=== PATIENT | male | born 1950 | race Caucasian/White ===

== ENCOUNTER 2023-08-16 23:52 | Inpatient (IN) | payer MEDICARE, OTHER, SELFPAY ==
[2023-08-16 20:23] VITALS: BP 127/82
[2023-08-16 20:27] VITALS: BP 127/82
[2023-08-16 20:41] LABS: % Basophils 0.2 % (0-2); % Immature Granulocytes 0.7 % (0-0.5); % Lymphocytes 8.2 % (20.5-51.1); % Monocytes 8.4 % (1.7-9.3); % Neutrophils 82.5 % (42.2-75.2); Absolute Immature Granulocytes 0.1 10^3/uL (0-0.05); Absolute Lymphocytes 0.7 10^3/uL (1.2-3.4); Absolute Monocytes 0.7 10^3/uL (0.1-0.6); Absolute Neutrophils 7.3 10^3/uL (1.4-6.5); Hematocrit 38.4 % (39.0-52.0); Hemoglobin 12.8 g/dL (13.0-18.0); Mean Corp Hgb Conc. 33.3 g/dL (33.0-37.0); Mean Corpuscular Hgb 31.2 pg (27.0-31.0); Mean Corpuscular Volume 93.7 fL (80.0-94.0); Nucleated Red Blood Cells % 0 % (-); Red Cell Dist. Width 14.4 % (11.5-14.5); White Blood Cell Count 8.9 10^3/uL (4.8-10.8)
[2023-08-16 20:54] LABS: ALT (SGPT) 83 U/L (0-50); AST (SGOT) 156 U/L (17-59); Albumin 4.1 g/dl (3.5-5.0); Alkaline Phosphatase 174 U/L (38-126); Blood Urea Nitrogen 15 mg/dl (9-20); Calcium 9.3 mg/dl (8.4-10.2); Carbon Dioxide 31 mmol/L (22-30); Chloride 91 mmol/L (98-107); Estimated Creatinine Clearance 74 ml/min; Glucose 142 mg/dl (70-99); Potassium 3.4 mmol/L (3.5-5.1); Sodium 137 mmol/L (135-145); Total Protein 8.4 g/dl (6.3-8.2); eGFR > 60.00
[2023-08-16 20:56] LABS: COVID-19 Antigen Negative (Negative)
[2023-08-16 21:00] VITALS: BP 123/87
[2023-08-16 21:06] LABS: Mean Platelet Volume 10.5 fL (7.4-10.4); Platelet Count 94 10^3/uL (130-400)
[2023-08-16] MEDS: NSS 1000 IV (21:26)
[2023-08-16] MEDS: MOTRIN 400 MG PO (21:26)
[2023-08-16 21:33] LABS: Venous Blood Gas B.E. 11.6 mmol/L (-4 to +4); Venous Blood Gas O2 Sat % 89.5 %; Venous Blood Gas pCO2 40 mmHg (35-48); Venous Blood Gas pH 7.55 (7.32-7.43); Venous Blood Gas pO2 54 mmHg (30-50)
--- NOTE | 2023-08-16 21:49 | ED.GENMED ---
History of Present Illness
General
Chief Complaint: Weakness
Source: patient
Exam Limitations: none
Time Seen by Provider: 08/16/23 21:03
Travel History
Have you had any contact with someone who has COVID-19?: No
Do you have any symptoms of coronavirus? Fever > 100 degrees, chills, cough, shortness of breath, sore throat, loss of taste or smell, muscle aches, or headache?: No
History of Present Illness
History of Present Illness:
Patient with history of chronic alcoholism, presents to ED secondary to generalized weakness which has caused him to fall multiple times recently. Last alcohol intake this afternoon. Upon arrival, patient found to be febrile, which she was not
aware of. Denies coughing. Denies diarrhea. Denies abdominal pain. Denies seeing blood with urination or with bowel movements, as he has had history of GI bleed. Denies dizziness. Patient does admit to decreased appetite, and poor oral intake.
Past History
Past History
ED Past Medical History: GERD, HTN, Hypercholesterolemia, Psychiatric (Depression) and Other (GI bleed, alcoholism)
Social History
Tobacco: Former smoker
Alcohol: Chronic alcoholic (12pk)
Drug: None
Living: with family
Review of Systems
Review of Systems
Allergies reviewed?: Yes
All Other Systems: ROS reviewed and negative except as documented in HPI and ROS
Constitutional: Reports no symptoms
EENT: Reports no symptoms
Respiratory: Reports no symptoms
Cardiac: Reports no symptoms
ABD/GI: Reports no symptoms
: Reports no symptoms
Musculoskeletal: Reports other (falls)
Skin: Reports no symptoms
Neurological: Reports weakness
Phy Exam
Physical Exam
Physical Exam:
Physical Exam
General: mild distress, not acutely ill. afebrile. weak appearing
Head: nc/at. eomi
Neck: supple. no meningeal signs.
Heart: s1/s2 regular rate and rhythm, no murmur. equal radial pulses.
Lungs: no acute respiratory distress. clear bilaterally
Abdomen: normal bowel sounds. not tender.
Neuro: alert and oriented. no focal neurological deficits
Skin: no rash
Psychiatric: well kept. interactive and cooperative
Extremities: no edema. no calf tenderness.
Course
Orders/Labs/Results
Orders:
Orders
08/16/23 20:27
Electrocardiogram (*1) Urgent
Reason for Study: Fatigue / Weakness
08/16/23 20:28
EKG- Treatment ONCE
08/16/23 20:30
Alcohol Urgent
COVID-19 Antigen Urgent
Source: Nasal Swab
Complete Blood Count/With Diff Urgent
Comprehensive Metabolic Panel Urgent
Lactic Acid Urgent
Magnesium Urgent
Comment: ADD ON
Blood Culture Urgent
KELLEY Source: Blood/Venous
Specimen Description:
Influenza A+B Rapid Molecular Urgent
KELLEY Source: Nasal Swab
Specimen Description:
08/16/23 21:12
Add On- LAB Urgent
Tests Added?: alcohol, magnesium
08/16/23 21:13
0.9% Sodium Chloride 1000 ml [Nss] 1,000 ml IV BOLUS
Ibuprofen [Motrin] 400 mg PO NOW STA
08/16/23 21:26
Venous Blood Gas Urgent
%Oxygen/Room Air: 95
08/16/23 21:50
CR Chest - 2 Views Urgent
Comment:
Reason For Exam: fever/cough
08/16/23 23:26
Lorazepam [Ativan] 1 mg IV NOW STA
Abnormal Lab Results
08/16/23 08/16/23
20:30 21:26
RBC 4.10 L 10^6/uL
(4.70-6.10)
Hgb 12.8 L g/dL
(13.0-18.0)
Hct 38.4 L %
(39.0-52.0)
MCH 31.2 H pg
(27.0-31.0)
Plt Count 94 L 10^3/uL
(130-400)
MPV 10.5 H fL
(7.4-10.4)
Abs Immat Gran (auto) 0.1 H 10^3/uL
(0-0.05)
Absolute Neuts (auto) 7.3 H 10^3/uL
(1.4-6.5)
Absolute Lymphs (auto) 0.7 L 10^3/uL
(1.2-3.4)
Absolute Monos (auto) 0.7 H 10^3/uL
(0.1-0.6)
Immature Gran % 0.7 H %
(0-0.5)
Neutrophils % 82.5 H %
(42.2-75.2)
Lymphocytes % 8.2 L %
(20.5-51.1)
VBG pH 7.55 H
(7.32-7.43)
VBG pO2 54 H mmHg
(30-50)
VBG HCO3 35.0 H mmol/L
(22-27)
Potassium 3.4 L mmol/L
(3.5-5.1)
Chloride 91 L mmol/L
(98-107)
Carbon Dioxide 31 H mmol/L
(22-30)
Glucose 142 H mg/dl
(70-99)
Lactic Acid 7.0 H* mmol/L
(0.7-2.0)
Total Bilirubin 2.0 H mg/dl
(0.2-1.3)
AST 156 H U/L
(17-59)
ALT 83 H U/L
(0-50)
Alkaline Phosphatase 174 H U/L
(38-126)
Total Protein 8.4 H g/dl
(6.3-8.2)
08/16/23 20:30
08/16/23 20:30
Vital Signs
Initial and Last Documented VS:
Initial Vital Signs
Temp Pulse Resp BP Pulse Ox
100.2 F 111 18 127/82 94
08/16/23 20:23 08/16/23 20:23 08/16/23 20:23 08/16/23 20:23 08/16/23 20:23
Last Documented Vital Signs
Temp Pulse Resp BP Pulse Ox
98.3 F 84 17 121/84 96
08/16/23 22:02 08/16/23 22:15 08/16/23 22:00 08/16/23 22:00 08/16/23 22:15
MDM/Problems Addressed
MDM/Problems Addressed:
History and exam concerning for febrile illness, unknown etiology at this time. COVID and influenza negative. Unfortunately, patient is alcohol dependent, including alcohol intake this afternoon, and consequently high risk for developing DTs,
which he has had previously. Increased lactate level, likely prerenal. As such, patient will be admitted for further evaluation and treatment, including continue IV hydration, as well as DT precautions..
Blood culture pending.
*Critical Care Note
Total Time (30-74mins, 75-104mins- exclusive of procedures): Not Applicable
ED Attending Note
-
Portions of this chart may have been created with voice recognition software.� Occasional wrong word or��sound alike� substitutions may have occurred due to the inherent limitations of voice recognition software.
Discharge Plan
Departure
Patient Disposition: Admit
Date of Disposition: 08/16/23
Time of Disposition: 23:29
Admit to: Telemetry
Presentation/result/management discussed w/ accepting MD/DO: Hospitalist
Discharge Problem:
Dehydration, Alcohol withdrawal
Interventions
Interventions:
*Risk Screen - Suicide Last Done: 08/16/23 20:23
*General Assessment Last Done: 08/16/23 20:23
*Neglect/Abuse Screening Last Done: 08/16/23 20:23
*ED COVID-19 Vaccine History Last Done: 08/16/23 20:23
ED- Cardiac Assessment Last Done: 08/16/23 20:25
ED- Neurological Assessment Last Done: 08/16/23 20:25
ED- Pulmonary Assessment Last Done: 08/16/23 20:25
[2023-08-16 21:57] LABS: Alcohol None Detected; Magnesium 1.9 mg/dl (1.6-2.3)
[2023-08-16 22:00] VITALS: BP 121/84
[2023-08-16] MEDS: ATIVAN 1 MG IV (23:56)
[2023-08-17] VITALS (33 sets, daily range): BP systolic 103–149; BP diastolic 55–122; BMI 19.4
--- NOTE | 2023-08-17 00:18 | HPS.HSE ---
Addendum entered and electronically signed by Carlos Jon DO 08/17/23 01:09:
Addendum:
CT Head added on given patient admitted history of frequent falls / head trauma.
CT shows bilateral subdural collections - approx 5mm in size - which appear to be most consistent with old hematomas.
Repeat CT in AM to assess for stability.
Follow neurologic exam for any changes.
Original Note:
Family Physician
-
Family Physician: Val Rosas
Chief Complaint
-
Weakness, Ambulatory Dysfunction
History of Present Illness
Patient is a 73y M with PMH significant for chronic alcohol use disorder and hypertension who presents to ED complaining of generalize weakness, tremulousness, gait dysfunction and falls. History obtained from patient and question accuracy of
details / timing due to chronic alcohol use / confabulations / etc. Patient reports feeling weak and wobbly for the past week or so. Then states that he last fell about 2 weeks ago. States that he does think he hit his head, but denies any LOC.
Has no pain at present, no headache.
Patient notes that he drinks 6-12 beers daily. He had 3 beers this afternoon.
Medical History
Past Medical History
Past Medical History: Reports Other
Additional Past Medical History:
Hypertension
Chronic Alcoholic
GERD
Iron Deficiency Anemia
Past Surgical History: Reports Other
Additional Past Surgical History:
Rotator Cuff Repair
Social History
Tobacco: Former Smoker (20 years 1 pack/day quit age 42)
Alcohol: Daily (10 beers )
Drug: None
Personal: Single
Living: Alone
Employment: Retired
Family History
Family History: Not pertinent
Allergies / Home Medications
Allergies reflects when Allergies were last updated in [facility].
Home Medications with original date entered in [facility] [employer] [facility]
Allergy/Medication List:
Allergies
Allergy/AdvReac Type Severity Reaction Status Date / Time
lisinopril Allergy Intermediate Tongue Verified 08/16/23 21:42
Swelling
Home Medications
simvastatin 20 mg tablet 20 mg PO QPM High cholesterol 02/08/21
ferrous sulfate 325 mg (65 mg iron) tablet (FeroSul) 325 mg PO DAILY 06/03/22
folic acid 400 mcg tablet 0.4 mg PO DAILY #30 tabs 12/01/22
metoprolol succinate 25 mg tablet,extended release 24 hr 12.5 mg PO DAILY #30 tabs 12/01/22
olanzapine 2.5 mg tablet 2.5 mg PO HS #30 tabs 12/01/22
thiamine HCl (vitamin B1) 100 mg tablet 100 mg PO DAILY #30 tabs 12/01/22
docusate sodium 100 mg capsule (Colace) 200 mg PO QPM 08/16/23
famotidine 40 mg tablet (Pepcid) 40 mg PO HS 08/16/23
hydrochlorothiazide 12.5 mg tablet 12.5 mg PO QPM 08/16/23
pantoprazole 40 mg tablet,delayed release (Protonix) 40 mg PO DAILY 08/16/23
sertraline 100 mg tablet 100 mg PO DAILY 08/16/23
Review of Systems
-
History Source: Patient
Constitutional: Reports Fatigue; Denies Fever or Chills
EENT: Denies Sore Throat
Respiratory: Denies Cough or Trouble Breathing
Cardiac: Denies Chest Pain or Palpitations
Abdomen/GI: Denies Abdominal Pain, Nausea, Vomiting or Diarrhea
: Denies Dysuria, Frequency or Flank Pain
Musculoskeletal: Denies Joint Pain or Edema
Neurological: Reports Dizzy, Weakness and Other (Tremulous); Denies Headache
Physical Exam
Vital Signs
Vital Signs
Temp Pulse Resp BP Pulse Ox
98.3 F 84 17 121/84 96
08/16/23 22:02 08/16/23 22:15 08/16/23 22:00 08/16/23 22:00 08/16/23 22:15
Physical Exam
General: Other (73y M mildly tremulous and restless. Awake and alert and conversant.)
HEENT: Moist mucous membranes and PERRLA
Respiratory: Clear; No Wheezes, Rales or Rhonchi
Cardiac: S1/S2 and Regular Rhythm; No Murmur
GI: Soft, Non Tender, Non Distended and Normal Bowel Sounds
Musculoskeletal: No Clubbing, No Cyanosis and No Edema
Neuro: Awake, Alert and Nonfocal/grossly intact
Laboratory Results
-
08/16/23 20:30
08/16/23 20:30
Laboratory Results
Lactic Acid 7.0 mmol/L (0.7-2.0) H* 08/16/23 20:30
Total Bilirubin 2.0 mg/dl (0.2-1.3) H 08/16/23 20:30
AST 156 U/L (17-59) H 08/16/23 20:30
ALT 83 U/L (0-50) H 08/16/23 20:30
Alkaline Phosphatase 174 U/L (38-126) H 08/16/23 20:30
Impression/Plan
-
A/P: Patient is a 73y M with PMH significant for HTN and alcohol use disorder who presents to ED for evaluation of weakness / gait dysfunction / falls at home.
Ambulatory Dysfunction
Fall(s) at Home
- Admit for further evaluation and treatment.
- Suspect that symptoms are due to chronic alcohol use disorder +/- acute withdrawal.
- Check CT head given multiple reported falls and stated head injury.
- Treat alcohol withdrawal symptoms as noted below.
- PT / OT evaluations.
- Suspect a degree of chronic gait dysfunction that may be irreversible due to longstanding alcohol abuse.
Alcohol Use Disorder
Alcohol Withdrawal
Alcoholic Hepatitis
Lactic Acidosis
- Patient is tremulous in the ED and describes episodes of 'shaking all over' with gait disturbance and falls at home.
- Question whether or not patient had a recent seizure - if only based on his history and significant lactate elevation that is otherwise unexplained?
- Monitor for symptoms of withdrawal and treat with BZDs as needed.
- Patient developed hypercapnia / somnolence with previous phenobarbital.
- Consider Precedex if symptoms are uncontrolled.
- Thiamine / folate / etc.
- Follow LFTs for improvement off of EtOH.
- Patient previously declined formal rehabilitation. Sobriety / recovery is unlikely without this.
Benign Hypertension
- Continue metoprolol with holding parameters.
- Would discontinue HCTZ in this chronic alcoholic / beer drinker with high risk for hyponatremia.
- Adjust regimen as needed for adequate control.
Iron Deficiency Anemia
- Stable. Hgb is improved from prior.
- Continue iron supplementation.
- Follow for any changes.
- GI evaluations done 04/2023 were unremarkable.
Anxiety / Depression
- Continue sertraline.
DVT Prophylaxis: SCDs
Code Status: Full
[2023-08-17] MEDS: LR 1000 IV ×3 (01:23→20:15)
[2023-08-17] MEDS: THIAMINE INJECTION 200 MG IV ×4 (01:24→23:45)
[2023-08-17 03:12] LABS: INR 1.19; PT 14.9 Sec (11.4-14.6)
[2023-08-17 03:13] LABS: APTT 27.5 Sec (23.4-35.0)
[2023-08-17] MEDS: ATIVAN 2 MG IV (03:23)
[2023-08-17 04:39] LABS: Hematocrit 31.5 % (39.0-52.0); Hemoglobin 10.6 g/dL (13.0-18.0); Mean Corp Hgb Conc. 33.7 g/dL (33.0-37.0); Mean Corpuscular Hgb 31.5 pg (27.0-31.0); Mean Corpuscular Volume 93.5 fL (80.0-94.0); Mean Platelet Volume 10.1 fL (7.4-10.4); Platelet Count 50 10^3/uL (130-400); Red Blood Cell Count 3.37 10^6/uL (4.70-6.10); Red Cell Dist. Width 14.4 % (11.5-14.5); White Blood Cell Count 4.2 10^3/uL (4.8-10.8)
[2023-08-17 05:00] LABS: ALT (SGPT) 33 U/L (0-50); AST (SGOT) 112 U/L (17-59); Albumin 3.2 g/dl (3.5-5.0); Alkaline Phosphatase 141 U/L (38-126); Blood Urea Nitrogen 12 mg/dl (9-20); Calcium 7.8 mg/dl (8.4-10.2); Carbon Dioxide 32 mmol/L (22-30); Chloride 98 mmol/L (98-107); Direct Bilirubin 0.8 mg/dl (0.0-0.4); Estimated Creatinine Clearance 98 ml/min; Glucose 76 mg/dl (70-99); Magnesium 1.7 mg/dl (1.6-2.3); Potassium 2.9 mmol/L (3.5-5.1); Sodium 133 mmol/L (135-145); Total Bilirubin 1.4 mg/dl (0.2-1.3); Total Protein 6.4 g/dl (6.3-8.2); eGFR > 60.00
[2023-08-17] MEDS: ATIVAN 1 MG IV ×2 (05:21→10:52)
--- NOTE | 2023-08-17 06:12 | PTCARENOTE ---
0545 - received pt from [facility], all assesments/admission completed during ED hold by previous RN, patient lethargic but able to tell me name//and where he was currently. no pain/discomfort, no nausea, only complaint is feeling weak. patient
states he has only had 3 beers on wednesday afternoon before he came to ER.
patient bathed and hooked up to monitors, was given ativan in ER prior to arrival. patient is in bed sleeping with bed alarm on.
[2023-08-17] MEDS: PROTONIX 40 MG PO (07:31)
[2023-08-17] MEDS: FOLVITE 1 MG PO (07:34)
[2023-08-17] MEDS: TOPROL XL 12.5 MG PO (07:34)
[2023-08-17] MEDS: ATIVAN 1 MG PO (07:34)
[2023-08-17] MEDS: KCL 40 MEQ PO (08:50)
[2023-08-17] MEDS: NSS (PRESERVATIVE FREE) 0.5 ML IV (10:52)
[2023-08-17] MEDS: PHENOBARBITAL 97.5 MG IV ×3 (12:33→21:26)
--- NOTE | 2023-08-17 12:34 | W.PN.HOSP.TC ---
Addendum entered and electronically signed by Alfred Gross MD 08/17/23 15:20:
Patient seen and examined
Discussed with resident
Discussed with RN
Discussed with patient's daughter over the phone
Falls at home.
Altered mental status secondary to severe alcohol use disorder with alcohol withdrawal and delirium tremens.
I related to name only.
No focal findings on exam other than tremor.
CT scan of the head with bilateral subdural collections 5 mm in size new.
Will ask neurosurgery to evaluate
Patient is not on antiplatelet or anticoagulation treatment prior to presentation.
Delirium tremens
Toxic metabolic encephalopathy secondary to above.
Continue close monitoring
MSAS assessment with lorazepam.
Add phenobarbital taper monitor for oversedation.
Continue thiamine
Alcoholic hepatitis.
Monitor LFTs.
Lactic acidosis.
Improved with volume expansion
Hold HCTZ
Follow BMP.
Hypokalemia
Replete
Follow BMP, magnesium level.
CODE STATUS DNR
Original Note:
Today's Communication/Plan
-
Continue Thiamine/Folate
Phenobarbital
PT/OT when stable for therapy.
Assessment / Plan
Assessment / Plan
A/P:� Patient is a 73y M with PMH significant for HTN and alcohol use disorder who presents to ED for evaluation of weakness / gait dysfunction / falls at home.
Ambulatory Dysfunction
Fall(s) at Home
�- Admit for further evaluation and treatment.
�- Suspect that symptoms are due to chronic alcohol use disorder +/- acute withdrawal.
�- Check CT head given multiple reported falls and stated head injury. CT shows bilateral subdural collections - approx 5mm in size - which appear to be most consistent with old hematomas.
�- Treat alcohol withdrawal symptoms as noted below.
�- PT / OT evaluations.
�- Suspect a degree of chronic gait dysfunction that may be irreversible due to longstanding alcohol abuse.
Alcohol Use Disorder
Alcohol Withdrawal
Alcoholic Hepatitis
Lactic Acidosis
�- Patient is tremulous in the ED and describes episodes of 'shaking all over' with gait disturbance and falls at home.
�- Question whether or not patient had a recent seizure - if only based on his history and significant lactate elevation that is otherwise unexplained?
�- Monitor for symptoms of withdrawal and treat with BZDs as needed.
�- Patient developed hypercapnia / somnolence with previous phenobarbital.
�- Consider Precedex if symptoms are uncontrolled.
�- Thiamine / folate / etc.
�- Follow LFTs for improvement off of EtOH.
�- Patient previously declined formal rehabilitation.� Sobriety / recovery is unlikely without this.
Benign Hypertension
�- Continue metoprolol with holding parameters.
�- Would discontinue HCTZ in this chronic alcoholic / beer drinker with high risk for hyponatremia.
�- Adjust regimen as needed for adequate control.
Iron Deficiency Anemia
�- Stable.� Hgb is improved from prior.
�- Continue iron supplementation.
�- Follow for any changes.
�- GI evaluations done 04/2023 were unremarkable.
Anxiety / Depression
�- Continue sertraline.
DVT Prophylaxis:� SCDs
Code Status:� DNR
Anticipated Discharge: > 48 hours
Subjective/Interval History
-
Date of Service: August 17, 2023
Objective Data
-
Labs:
Laboratory Results
08/17/23 08/17/23
02:44 04:32
WBC 4.2 L
Hgb 10.6 L
Hct 31.5 L
Plt Count 50 L D
PT 14.9 H
INR 1.19
APTT 27.5
Sodium 133 L
Potassium 2.9 L
Chloride 98
Carbon Dioxide 32 H
BUN 12
Creatinine 0.6 L
Glucose 76
Calcium 7.8 L D
Total Bilirubin 1.4 H
AST 112 H
ALT 33
Alkaline Phosphatase 141 H
Vital Signs:
Vital Signs
Temp Pulse Resp BP Pulse Ox
97.5 F 68 11 125/77 98
08/17/23 12:02 08/17/23 12:00 08/17/23 12:00 08/17/23 12:00 08/17/23 12:00
I&O
08/16/23 08/17/23 08/18/23
06:59 06:59 06:59
Intake Total 480 / 580 600 / 600
Output Total 200 / 200
Balance 280 / 380 600 / 600
Review of Systems
-
Unable to obtain full review of systems at this time due to: Other (tremulous )
Physical Exam
-
General: Other (Awake, tremulous, restless, )
HEENT: Moist Mucous Membranes
Respiratory: Clear to Auscultation; Negative Wheezes
Cardiac: Regular Rhythm and S1/S2; Negative Murmur or Rub
GI: Soft, Nontender, Nondistended and Normal Bowel Sounds
Musculoskeletal: No Clubbing, No Cyanosis and No Edema
Neuro: Awake and Tremors
--- NOTE | 2023-08-17 13:17 | CM ---
CM following re: discharge planning.
Discussed in Rounds, reviewed pt's chart, met with pt and daughter Poly at bedside.
Pt is a 73 year old male, admitted with primary dx of Ambulatory Dysfunction. Fall(s) at Home. PMH significant for alcohol use disorder. Per daughter last year in November pt had similar admissions to and went to [facility] for a short term
rehab. Per daughter, pt lives alone in a 2SH, 2 steps to enter, has 3 children, one daughter is not involved in pt's live.
Pt's [facility] stated [facility] admission to and it did not work out. Per daughter, pt continues drinking, his house in deplorable condition, feces everywhere. Pt's daughter stated she understands pt's addiction
to alcohol especially 'being alcoholic myself'.
Pt's daughter stated that pt will not be able to return back home and she is working with [facility] to admit the pt for a short term and a moth exterminator care.
PCP: Val Rosas
Pharmacy: [facility] [place].
[facility] a transition to a moth exterminator care.
CM will follow with discharge plan updates as hospitalization progresses
[2023-08-17] MEDS: LIPITOR 10 MG PO (17:05)
--- NOTE | 2023-08-17 17:35 | CON.NS ---
Consultation
-
Date/Time Consultation Performed: 08/17/2023; 17:35
Performing Provider: Norma
Chief Complaint
History of Present Illness
This is a neurosurgical consultation, 73 old gentleman admitted overnight. He has a past medical history significant for chronic alcohol use disorder, hypertension, he presented with generalized weakness with falls, gait dysfunction. Patient
reported overall sense of weakness and gait instability with wobbliness for the last week or so. He also sustained a fall several weeks prior.
Patient had a head CT given his history of frequent falls/remote history of head trauma which demonstrated bilateral subdural collections.
Patient seen and examined. Is been approximately 48 hours since his last drink. He is receiving phenobarbital for alcohol withdrawal. Currently he denies any headaches.
Review of Systems
-
A 10 point review of systems was performed, which included constitutional, ENT, cardiovascular, respiratory, GI, , endocrine, hematologic, neurologic, musculoskeletal, which was negative except for stated in HPI.
Medication and Allergies
Home Medications
Home Medications
Medication Instructions Recorded
simvastatin 20 mg tablet 20 mg PO QPM High cholesterol 02/08/21
ferrous sulfate 325 mg (65 mg 325 mg PO DAILY Supplement 06/03/22
iron) tablet (FeroSul)
folic acid 400 mcg tablet 0.4 mg PO DAILY #30 tabs 12/01/22
metoprolol succinate 25 mg 12.5 mg PO DAILY #30 tabs 12/01/22
tablet,extended release 24 hr
olanzapine 2.5 mg tablet 2.5 mg PO HS #30 tabs 12/01/22
thiamine HCl (vitamin B1) 100 mg 100 mg PO DAILY #30 tabs 12/01/22
tablet
docusate sodium 100 mg capsule 200 mg PO QPM Constipation 08/16/23
(Colace)
famotidine 40 mg tablet (Pepcid) 40 mg PO HS Gastrointestinal Issue 08/16/23
hydrochlorothiazide 12.5 mg tablet 12.5 mg PO QPM Blood Pressure 08/16/23
pantoprazole 40 mg tablet,delayed 40 mg PO DAILY Gastrointestinal 08/16/23
release (Protonix) Issue
sertraline 100 mg tablet 100 mg PO DAILY Mental 08/16/23
Health/Anxiety
Allergies
Allergies
Allergy/AdvReac Type Severity Reaction Status Date / Time
lisinopril Allergy Intermediate Tongue Verified 08/16/23 21:42
Swelling
Physical Exam
-
Exam:
Sleeping but arousable. Mildly tremulous.
Pupils are equal and reactive.
Extraocular movements are full.
Face is symmetric. Tongue is midline.
5/5 strength in upper extremities lower extremities.
Head is normocephalic, atraumatic.
Neck is supple.
Abdomen is soft.
Breathing is nonlabored.
Pulses are palpable.
Normal rate and rhythm.
Exams:� CT Head W/o Iv Contrast
PROCEDURE: CT Head W/o Iv Contrast
CLINICAL INDICATION: Fall. Weakness. EtOH.
TECHNIQUE: A CT examination of the head was performed without intravenous contrast. Coronal reformatted images were obtained. Automatic exposure control radiation dose reduction technology was utilized.
COMPARISON: Most recent examination 11/20/2022. Brain MRI 01/07/2012.
Preliminary report provided by [facility].
FINDINGS: When compared to the previous exam 11/20/2022 there are bifrontal subdural collections measuring 5 mm. These are low to intermediate in density, suggesting chronic subdural hematoma or hygroma. There are a few scattered foci of internal
hyperdensity concerning for superimposed more acute hemorrhage.
The ventricles are mildly enlarged bilaterally. No midline shift.� There is mild deepening of the sulci diffusely. Mild decrease in attenuation in the periventricular and deep white matter.� Calvarium intact.
There is no� definite acute infarct or hemorrhage otherwise.
There is no mass or mass effect.
The visualized portions of the paranasal sinuses and orbits are� clear of an acute process. Minimal mucosal thickening in the right maxillary sinus.
IMPRESSION:
1. � New bilateral subdural collections when compared to 11/20/2022. This is likely due to previous subdural hematoma, now most consistent with a chronic hygroma. Superimposed acute hemorrhage cannot be excluded, short-term interval CT head is
recommended to ensure stability.
2. � No active intraparenchymal hemorrhage. No midline shift.
3. � No significant change in the diffuse volume loss and chronic leukoaraiosis. Likely microangiopathic. No focal area of large vascular territory ischemia.
4. � No calvarial fracture.
5. � These results were discussed with Dr. Jon at 12:54 AM by the on-call radiologist Dr. Mujica.
This report agrees with the report provided by [facility].
Electronically signed by La Callejas MD 08/17/2023 10:46 AM
Exams:� CT Head W/o Iv Contrast
Scanning parameters: CT of the head without intravenous contrast material was obtained. Automated exposure control was used.
INDICATION: Subdural hematoma. Chronic alcohol abuse
Weakness. Gait dysfunction
Comparison examination: 08/17/2023 and 11/20/2022
FINDINGS:
There is mild diffuse cortical and cerebellar atrophy
There are stable 8 mm in diameter bilateral low-density frontotemporal subdural collections which had not been present on the 11/20/2022 examination and which may be hygromas or subdural hematomas/seromas.
There is no acute intracranial hemorrhage
There are no acute intracranial abnormalities.
There is no intracranial hemorrhage.
There is no edema or mass effect to suggest neoplasm.
There are no abnormal extra-axial fluid collections.
There are no focal areas of diminished density to suggest infarct.
IMPRESSION:
There are stable 8 mm in diameter bilateral low-density frontotemporal subdural collections which had not been present on the 11/20/2022 examination and which may be hygromas or subdural hematomas/seromas.
There is no acute intracranial hemorrhage
There is mild diffuse cortical and cerebellar atrophy
Electronically signed by Brandon Alvarado MD 08/17/2023 10:16 AM
I reviewed the initial, and follow-up PET/CT. I agree with the above reports. There is bilateral hypodense subdural/extra-axial collections, most consistent with subdural hygromas. No obvious evidence of brain compression is seen
Problems
-
Problem Status Onset Code
Dehydration E86.0
Alcohol withdrawal F10.939
Assessment / Plan
-
This is a 73-year-old gentleman with a history of chronic alcohol abuse, who presents with generalized weakness, frequent falls. CT of the head demonstrates bilateral subdural hygromas/chronic subdural hematomas without any evidence of brain
compression.
Patient with thrombocytopenia, likely secondary to liver disease from alcohol abuse. Recommend follow-up/trending patient's platelet count. Would recommend maintaining platelet counts greater than 50,000 at all times to prevent spontaneous
intracranial hemorrhage.
Alcohol withdrawal treatment per medicine/ICU. No further follow-up imaging studies needed, unless examination changes.
--- NOTE | 2023-08-17 17:36 | PTCARENOTE ---
Patient received in AM with assessment as noted and IMU hold status.ETOH withdrawal ongoing with MSAS scores between 5-9. Phenobarbital protocol started at 1200 with subsequent MSAS scores of 5-6. Calm but confused affect. Oriented to self and place
(if you accept [facility] as a viable answer to place) only. Compliant with PO meds. Able to swallow meds safely. NSR on monitor. Afebrile. B/P's stable. Lungs CTA. Sao2 97% on room air. Refused meals. No bowel movement today. Incontinent of urine.
Her daughter (POA) into visit and made him a DNR. Patient currently in bed with side rails up and call lawton in place. Will continue to monitor closely.
--- NOTE | 2023-08-17 20:30 | PTCARENOTE ---
Resumed care of pt sleeping in bed. Pt arousable to voice. Pt AAOx3, slightly forgetful to time of day. Pt cooperative with care, follows all commands. MSAS 3 at this time- hand tremors noted. HR in the 60's NSR on the monitor. POX 100% on RA. Lungs
clear. Hyper bowel. Pt expressing need to void, Pt voided 300ml dark bud urine in urinal without difficulty. Attends in place. Pt states he uses attends at home as well. Palpable peripheral pulses. Scattered scabs/ abrasions open to air. Left
forearm int infusing LR @100ml/hr. Pt denies any complaints. Pt sitting up in bed watching tv. Bed alarm on for pt safety. Will continue to monitor.
[2023-08-17] MEDS: PEPCID 40 MG PO (21:26)
[2023-08-17] MEDS: ZYPREXA 2.5 MG PO (21:26)
[2023-08-18] VITALS (15 sets, daily range): BP systolic 93–157; BP diastolic 62–106; PULSE 80; O2SAT 100; BMI 19.9
[2023-08-18 04:01] LABS: % Basophils 0.8 % (0-2); % Eosinophils 1.1 % (0-6); % Immature Granulocytes 0.3 % (0-0.5); % Lymphocytes 25.6 % (20.5-51.1); % Neutrophils 64.2 % (42.2-75.2); Absolute Monocytes 0.3 10^3/uL (0.1-0.6); Absolute Neutrophils 2.4 10^3/uL (1.4-6.5); Hematocrit 31.7 % (39.0-52.0); Hemoglobin 10.7 g/dL (13.0-18.0); Mean Corp Hgb Conc. 33.8 g/dL (33.0-37.0); Mean Corpuscular Hgb 31.8 pg (27.0-31.0); Mean Corpuscular Volume 94.3 fL (80.0-94.0); Mean Platelet Volume 10.3 fL (7.4-10.4); Nucleated Red Blood Cells % 0 % (-); Platelet Count 49 10^3/uL (130-400); Red Blood Cell Count 3.36 10^6/uL (4.70-6.10); Red Cell Dist. Width 13.8 % (11.5-14.5); White Blood Cell Count 3.8 10^3/uL (4.8-10.8)
[2023-08-18 04:16] LABS: ALT (SGPT) 28 U/L (0-50); AST (SGOT) 107 U/L (17-59); Albumin 2.8 g/dl (3.5-5.0); Alkaline Phosphatase 113 U/L (38-126); Blood Urea Nitrogen 6 mg/dl (9-20); Calcium 7.7 mg/dl (8.4-10.2); Carbon Dioxide 32 mmol/L (22-30); Chloride 95 mmol/L (98-107); Estimated Creatinine Clearance 101 ml/min; Glucose 61 mg/dl (70-99); Magnesium 1.4 mg/dl (1.6-2.3); Potassium 3.1 mmol/L (3.5-5.1); Sodium 132 mmol/L (135-145); Total Bilirubin 1.5 mg/dl (0.2-1.3); eGFR > 60.00
[2023-08-18] MEDS: KCL 40 MEQ PO (05:08)
[2023-08-18] MEDS: KCL 270 MEQ IV (05:09)
[2023-08-18] MEDS: MAGNESIUM SULFATE 50 IV (05:10)
--- NOTE | 2023-08-18 06:23 | PTCARENOTE ---
Pt slept intermittently t/o the night. Pt cooperative with care. MSAS<4 t/0 the night and no need for Ativan. Pt with noted tremor and has trouble using urinal without spilling. Pt encouraged to ask for assistance. Pt attempting to get OOB this am
without help, bed alarm going off. PT was already inc of bowel in the bed. Complete bed bath/ linen change provided. Pt again encouraged to use call lawton and ask for help. All AM labs discussed with Brent GUY, orders obtained, see MAR. bed alarm
on bed. Will monitor.
[2023-08-18 07:27] LABS: Glucose - Point of Care 91 mg/dl (70-99)
[2023-08-18] MEDS: LR 1000 IV ×2 (08:27→17:33)
[2023-08-18] MEDS: TOPROL XL 12.5 MG PO (08:28)
[2023-08-18] MEDS: PROTONIX 40 MG PO (08:28)
[2023-08-18] MEDS: FOLVITE 1 MG PO (08:28)
[2023-08-18] MEDS: THIAMINE INJECTION 200 MG IV ×2 (08:29→16:16)
[2023-08-18] MEDS: PHENOBARBITAL 97.5 MG IV ×3 (08:30→23:19)
--- NOTE | 2023-08-18 08:51 | PTCARENOTE ---
0700 patient received. BP via left upper arm 133/90 MAP 104 SR 84 RR 12; MSAS 6 RASS -1 patient AAO x3. Visible tremors, Forceful, Restless.. Incontinent of bowel and bladder. Phenobarbital 97.5 adm per current order . DNR bracelet intact RT arm.
bed alarm activated. call lawton with in reach
--- NOTE | 2023-08-18 11:23 | PN.CDI ---
CDI
- -
CDI:
Physician Documentation Request
Admit Date: 08/16/23 23:52
Dear Doctor Ginny,
Patient admitted for alcohol withdrawal.
08/17 Teasel Setter Assessment: 'With weight loss of > 20% in 1 a year, < 75% estimated needs > 1 month and observed muscle and fat wasting pt meets AND/ASPEN criteria for moderate protein calorie malnutrition. '
Based on the information, which of the following most accurately represents the patient's nutritional status?
Moderate protein calorie malnutrition
Other
Use of terms such as suspected, likely, concern for, or probable (associated with a specific diagnosis that is being evaluated, monitored, or treated as if it exists) are acceptable and can be coded in the inpatient setting, when documented at the
time of discharge.
Thank you,
Ivette Tate RN, BSN
CDI Specialist
Available via [place] text
Please use your independent medical judgment in providing your response.
--- NOTE | 2023-08-18 11:29 | W.PN.HOSP.TC ---
Addendum entered and electronically signed by Alfred Gross MD 08/18/23 15:27:
Patient seen and examined
Discussed with resident
Discussed with nursing
Impression/plan:
Toxic metabolic encephalopathy secondary to alcohol withdrawal
Delirium tremens.
Bilateral small subdural hematoma, stable
Mild alcoholic hepatitis
Lactic acidosis, resolved
Toxic metabolic encephalopathy/delirium tremens.
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
Neurologic exam consistent with confusion while patient oriented to name only
No focal findings on exam
Mild tremor improved while on lorazepam and phenobarbital.
Repeated CT scan of the head with no changes and likely consistent with old hematoma, hygroma. Neurosurgery input appreciated.
Continue lorazepam and phenobarbital.
Monitor oral intake
Wean off IV fluids if sufficient oral intake.
Off HCTZ
Original Note:
Today's Communication/Plan
-
Continue Phenobarbital taper
Continue thiamine
Follow BMP
Follow Magnesium level.
Monitor LFTs for Alcoholic hepatitis
follow-up platelet count.
Assessment / Plan
Assessment / Plan
A/P:� Patient is a 73y M with PMH significant for HTN and alcohol use disorder who presents to ED for evaluation of weakness / gait dysfunction / falls at home.
Falls at home.
Altered mental status secondary to severe alcohol use disorder with alcohol withdrawal and delirium tremens.
I related to name only.
No focal findings on exam other than tremor.
CT scan of the head with bilateral subdural collections 5 mm in size new.
Will ask neurosurgery to evaluate
Patient is not on antiplatelet or anticoagulation treatment prior to presentation.
Delirium tremens
Toxic metabolic encephalopathy secondary to above.
Continue close monitoring
MSAS assessment with lorazepam.
Add phenobarbital taper monitor for oversedation.
Continue thiamine
Alcoholic hepatitis.
Monitor LFTs.
Lactic acidosis.
Improved with volume expansion
Hold HCTZ
Follow BMP.
Hypokalemia
Replete
Follow BMP, magnesium level.
Benign Hypertension
�- Continue metoprolol with holding parameters.
�- Would discontinue HCTZ in this chronic alcoholic / beer drinker with high risk for hyponatremia.
�- Adjust regimen as needed for adequate control.
Iron Deficiency Anemia
�- Stable.� Hgb is improved from prior.
�- Continue iron supplementation.
�- Follow for any changes.
�- GI evaluations done 04/2023 were unremarkable.
Anxiety / Depression
�- Continue sertraline.
DVT Prophylaxis:� SCDs
Code Status:� DNR
Anticipated Discharge: > 48 hours
Subjective/Interval History
-
Date of Service: August 18, 2023
Objective Data
-
Labs:
Laboratory Results
08/17/23 08/18/23 08/18/23
22:00 03:34 12:00
WBC 3.8 L
Hgb 10.7 L
Hct 31.7 L
Plt Count 49 L
Sodium Cancelled 132 L Pending
Potassium Cancelled 3.1 L Pending
Chloride Cancelled 95 L Pending
Carbon Dioxide Cancelled 32 H Pending
BUN Cancelled 6 L Pending
Creatinine Cancelled 0.5 L Pending
Glucose Cancelled 61 L Pending
Calcium Cancelled 7.7 L Pending
Total Bilirubin 1.5 H
AST 107 H
ALT 28
Alkaline Phosphatase 113
Vital Signs:
Vital Signs
Temp Pulse Resp BP Pulse Ox
98.2 F 83 20 133/90 100
08/18/23 07:27 08/18/23 08:28 08/18/23 08:21 08/18/23 08:28 08/17/23 23:00
I&O
08/17/23 08/18/23 08/19/23
06:59 06:59 06:59
Intake Total 480 / 580 2652.5 / 2652.5 607.5 / 607.5
Output Total 200 / 200 1700 / 1700 300 / 300
Balance 280 / 380 952.5 / 952.5 307.5 / 307.5
Physical Exam
-
General: Other (awake, tremulous, verbal)
HEENT: Moist Mucous Membranes
Respiratory: Clear to Auscultation; Negative Wheezes
Cardiac: Regular Rhythm and S1/S2; Negative Murmur or Rub
GI: Soft, Nontender, Nondistended and Normal Bowel Sounds
Musculoskeletal: No Clubbing, No Cyanosis and No Edema
Neuro: Awake (awake, not oriented) and Tremors (mild tremors)
[2023-08-18] MEDS: ATIVAN 1 MG IV ×2 (11:44→14:40)
--- NOTE | 2023-08-18 12:07 | PTCARENOTE ---
1200-Pt agitated,attempting to get OOB.Pt states 'I'm leaving here'.Pt is oriented to self only.When reason for hospitalization ETOH withdrawal, pt states' no I'm not,you don't know what you're talking about'.Pt frequently removing monitoring
equipment despite explanation given.Pt removed mitts.Med Sitter activated.Wrist restraints applied as per MD order.MSAS 9-Ativan given as ordered.Dr Gross at bedside to assess pt.
[2023-08-18] MEDS: MAGNESIUM OXIDE 500 MG PO (14:39)
[2023-08-18] MEDS: NSS (PRESERVATIVE FREE) 0.5 ML IV (14:39)
[2023-08-18] MEDS: PRECEDEX 100 IV (15:30)
[2023-08-18 15:32] LABS: Blood Urea Nitrogen 7 mg/dl (9-20); Calcium 7.8 mg/dl (8.4-10.2); Carbon Dioxide 28 mmol/L (22-30); Chloride 99 mmol/L (98-107); Estimated Creatinine Clearance 101 ml/min; Glucose 104 mg/dl (70-99); Sodium 129 mmol/L (135-145); eGFR > 60.00
--- NOTE | 2023-08-18 16:19 | PTCARENOTE ---
patient continually getting more restless and agitated. MSAS 13. Restraints to b/l UE . bed seater in place pt pulling on restrains attempting to get out of bed. bed alarm activated . Phenobarbital adm per current order . pt changed to ICU level of
care . Precedex will be started per protocol
--- NOTE | 2023-08-18 17:10 | CON.INTV ---
Consultation
Consultation Request
Date/Time Consultation Requested: 08/18/2023 - 162
Date/Time Consultation Performed: 08/18/2023 - 1653
Requesting Provider: Dr. Gross
Performing Provider: Dr. Woods
Reason for Consultation: Worsening aalcohol withdrawal
Medical History
-
Chief Complaint: Generalized weakness
History of Present Illness:
73-year-old male with a past medical history of former tobacco use disorder, GERD, alcohol use disorder and depression who presents from home with weakness, shakiness and difficulty ambulating. Apparently, patient unable to make to the bathroom due
to weakness. When EMS arrived he was tachycardic. In the ER, patient afebrile to 98.3 �F, heart rate 106, respiratory rate 23, BP 121/84 and SpO2 96% on room air. He admitted to drinking 3 drinks per day but he told the hospitalist he drinks over
10 beers a day. Labs showed metabolic alkalosis with venous pH 7.55, pCO2 40. Serum bicarbonate 31, serum potassium 3.4, chloride 91, lactate 7, total bilirubin 2, WBC 8.9, Hb 12.8 and platelet count low at 94. COVID antigen negative. Alcohol
level was also negative. He was given 1 L NS 0.9% x 1. Initial CXR showed no acute cardiopulmonary process, and a CT head showed bilateral subdural collections which is new compared to prior imaging from November 2022. This is likely a chronic
hygroma. No active IPH seen, nor midline shift. Patient did have a repeat CT head again on 08/17/2023 which showed stable 8 mm bilateral subdural collections without active intracranial hemorrhage. Patient was admitted to the hospitalist service
for alcohol withdrawal. Patient's withdrawal symptoms worsened despite getting Ativan multiple times and patient upgraded to ICU for Precedex infusion and critical care services consulted for additional management/recommendations.
PMhx: Alcohol abuse, GERD, iron deficient anemia, chronic subdural hematoma, hypertension, former tobacco use disorder
PSHx: Rotator cuff repair; appendectomy
Past Medical History
Past Medical History: Other (Above as per HPI)
Past Surgical History: Other (Above as per HPI)
Social History
Tobacco: Former Smoker (50-fwzz-moyc history, quit at age 42)
Alcohol: Daily (10 beers daily)
Drug: None
Living: Alone
Employment: Retired
Family History
Family History: Reviewed & Not Pertinent
Allergies / Home Medications
Allergies
Allergy/AdvReac Type Severity Reaction Status Date / Time
lisinopril Allergy Intermediate Tongue Verified 08/16/23 21:42
Swelling
Home Medications
Medication Instructions Recorded Confirmed Last Taken Type
simvastatin 20 mg tablet 20 mg PO QPM High cholesterol 02/08/21 08/16/23 3 Months Ago History
~05/16/23
ferrous sulfate 325 mg (65 mg 325 mg PO DAILY Supplement 06/03/22 08/16/23 3 Months Ago History
iron) tablet (FeroSul) ~05/16/23
folic acid 400 mcg tablet 0.4 mg PO DAILY #30 tabs 12/01/22 08/16/23 3 Months Ago Rx
~05/16/23
metoprolol succinate 25 mg 12.5 mg PO DAILY #30 tabs 12/01/22 08/16/23 3 Months Ago Rx
tablet,extended release 24 hr ~05/16/23
olanzapine 2.5 mg tablet 2.5 mg PO HS #30 tabs 12/01/22 08/16/23 3 Months Ago Rx
~05/16/23
thiamine HCl (vitamin B1) 100 mg 100 mg PO DAILY #30 tabs 12/01/22 08/16/23 3 Months Ago Rx
tablet ~05/16/23
docusate sodium 100 mg capsule 200 mg PO QPM Constipation 08/16/23 08/16/23 3 Months Ago History
(Colace) ~05/16/23
famotidine 40 mg tablet (Pepcid) 40 mg PO HS Gastrointestinal Issue 08/16/23 08/16/23 3 Months Ago History
~05/16/23
hydrochlorothiazide 12.5 mg tablet 12.5 mg PO QPM Blood Pressure 08/16/23 08/16/23 3 Months Ago History
~05/16/23
pantoprazole 40 mg tablet,delayed 40 mg PO DAILY Gastrointestinal 08/16/23 08/16/23 3 Months Ago History
release (Protonix) Issue ~05/16/23
sertraline 100 mg tablet 100 mg PO DAILY Mental 08/16/23 08/16/23 3 Months Ago History
Health/Anxiety ~05/16/23
Review of Systems
-
Unable to Obtain full review of systems at this time due to: Acuity
Vitals / Labs / Diagnostic Testing
Vital Signs
Temp Pulse Resp BP Pulse Ox
98.2 F 86 17 93/62 100
08/18/23 15:18 08/18/23 17:00 08/18/23 17:00 08/18/23 11:20 08/18/23 11:07
Lab Data
08/18/23 03:34
08/18/23 15:05
Microbiology
08/16/23 20:30 Blood/Venous Blood Culture - Preliminary
No Growth in 24 hours- Final report to follow
08/16/23 20:30 Nasal Swab Influenza Types A & B ([facility]) - Final
Negative for Influenza A & B, NAAT
Negative results must be combined with clinical observations
and patient history.
Nucleic Acid Amplification test (NAAT)performed on the
[employer] platform.
Diagnostic Testing:
Physical Exam
-
HEENT: Normocephalic and Anicteric
Cardiovascular: S1/S2 and Peripheral Edema (negative)
Respiratory: Clear, Wheeze (negative), Rales (negative), Rhonchi (negative) and Non-Labored Respirations
GI: Soft, Non Distended, Non Tender and Other (no ascites seen; no jaundice seen)
Neurology: Awake and Other (lethargic, occasionally agitated)
Skin: Warm and Dry
General: Chills (negative)
Assessment
-
Assessment: 73-year-old male with a past medical history of former tobacco use disorder, GERD, alcohol use disorder and depression who presents from home with weakness, shakiness and difficulty ambulating. Apparently, patient unable to make to the
bathroom due to weakness. When EMS arrived he was tachycardic. In the ER, patient afebrile to 98.3 �F, heart rate 106, respiratory rate 23, BP 121/84 and SpO2 96% on room air. He admitted to drinking 3 drinks per day but he told the hospitalist
he drinks over 10 beers a day. Labs showed metabolic alkalosis with venous pH 7.55, pCO2 40. Serum bicarbonate 31, serum potassium 3.4, chloride 91, lactate 7, total bilirubin 2, WBC 8.9, Hb 12.8 and platelet count low at 94. COVID antigen
negative. Alcohol level was also negative. He was given 1 L NS 0.9% x 1. Initial CXR showed no acute cardiopulmonary process, and a CT head showed bilateral subdural collections which is new compared to prior imaging from November 2022. This is
likely a chronic hygroma. No active IPH seen, nor midline shift. Patient did have a repeat CT head again on 08/17/2023 which showed stable 8 mm bilateral subdural collections without active intracranial hemorrhage. Patient was admitted to the
hospitalist service for alcohol withdrawal. Patient's withdrawal symptoms worsened despite getting Ativan multiple times and patient upgraded to ICU for Precedex infusion and critical care services consulted for additional
management/recommendations.
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
Impression:
#Acute alcohol withdrawal with acute agitation now on precedex gtt
#Hyponatremia -likely due to beer potomania
#Transaminitis with elevated AST and hyperbilirubinemia -due to alcoholic liver disease - LFTs and T. bili are improving - no need for steroids at this time
#Thrombocytopenia/leukopenia/anemia -patient does not have cirrhosis as his INR is <1.5; this could still very well be alcoholic hepatitis
#Generalized weakness
#Alcohol abuse
#GERD
#Chronic subdural hematoma
#Former tobacco use disorder
Plan:
- Start precedex gtt
- Continue phenobarbital protocol
- prn zyprexa but monitor QTc
- Will give dose of Valium 10mg IV x1 to help calm down patient
- continue MSAS with prn ativan
- check abd US to evaluate liver parenchyma given elevated T. bili; and also to evaluate for ascites
- Check/trend ammonia level
- Trend LFTs
- Trend sNa level and aim for 135-145mmol/L
- check hepatitis panel
- thiamine, folate and MVN
- Maintain MAP>65
- PT/OT once he is medical stable
- Replete K>3.5, Mg>1.8
- DVT ppx
Critical care statement: A total of 40 minutes of critical care time was provided for this patient today. This includes management of unstable vital signs, evaluation of the patient at bedside, reviewing the patient's pertinent medical records
including radiographs, microbiology, laboratory evaluations, and discussion with primary team, consultants, pharmacy, nutrition, physical therapy, case management, charge nurse, critical care nursing, and respiratory therapy.
Data:
CXR 08-16-2023: No acute cardiopulmonary process.
CT Head 08-17-2023:
There are stable 8 mm in diameter bilateral low-density frontotemporal subdural collections which had not been present on the 11/20/2022 examination and which may be hygromas or subdural hematomas/seromas.
There is no acute intracranial hemorrhage
There is mild diffuse cortical and cerebellar atrophy
[2023-08-18] MEDS: LIPITOR PO (17:12)
--- NOTE | 2023-08-18 17:16 | PTCARENOTE ---
patient very agitated confused restless RASS +3 Lat MSAS 13. Restraints to b/l UE. Precedex initiated at 0.2/3.2 ml per protocol HOB elevated
--- NOTE | 2023-08-18 19:45 | PTCARENOTE ---
patient in bed, sleeping Restraints to b/L UE. bed at lowest position. Precedes at 0.5 with LR at 100/hr . HOB elevated
--- NOTE | 2023-08-18 20:30 | PTCARENOTE ---
Resumed care of pt this evening. Received pt on precedex gtt. Pt RASS -2. Pt in restraints w/ video monitoring. VSS
[2023-08-18] MEDS: PEPCID PO (21:29)
[2023-08-18] MEDS: MAGNESIUM OXIDE PO (21:29)
[2023-08-18] MEDS: ZYPREXA PO (21:29)
[2023-08-19] VITALS (13 sets, daily range): BP systolic 101–181; BP diastolic 79–98; BMI 19.8
[2023-08-19] MEDS: THIAMINE INJECTION 200 MG IV ×3 (01:20→16:14)
--- NOTE | 2023-08-19 02:00 | PTCARENOTE ---
Precedex gtt titrated down to 0.2 mcg/kg/hr per protocol. VSS
[2023-08-19] MEDS: LR 1000 IV ×2 (04:20→13:48)
[2023-08-19] MEDS: LOPRESSOR 5 MG IV (06:10)
[2023-08-19 06:41] LABS: APTT 26.1 Sec (23.4-35.0); INR 1.09; PT 14.1 Sec (11.4-14.6)
[2023-08-19 06:43] LABS: % Basophils 0.6 % (0-2); % Immature Granulocytes 0.3 % (0-0.5); % Lymphocytes 17.4 % (20.5-51.1); % Monocytes 7.8 % (1.7-9.3); % Neutrophils 71.9 % (42.2-75.2); Absolute Eosinophils 0.1 10^3/uL (0-0.7); Absolute Lymphocytes 0.6 10^3/uL (1.2-3.4); Absolute Monocytes 0.3 10^3/uL (0.1-0.6); Absolute Neutrophils 2.5 10^3/uL (1.4-6.5); Hematocrit 34.5 % (39.0-52.0); Hemoglobin 11.4 g/dL (13.0-18.0); Mean Corpuscular Hgb 31.4 pg (27.0-31.0); Mean Platelet Volume 11.3 fL (7.4-10.4); Nucleated Red Blood Cells % 0 % (-); Platelet Count 52 10^3/uL (130-400); Red Blood Cell Count 3.63 10^6/uL (4.70-6.10); Red Cell Dist. Width 13.5 % (11.5-14.5); White Blood Cell Count 3.5 10^3/uL (4.8-10.8)
[2023-08-19 06:47] LABS: Ammonia < 9 umol/L (9-30)
[2023-08-19 07:02] LABS: ALT (SGPT) 33 U/L (0-50); AST (SGOT) 113 U/L (17-59); Albumin 3.2 g/dl (3.5-5.0); Alkaline Phosphatase 138 U/L (38-126); Blood Urea Nitrogen 4 mg/dl (9-20); Calcium 8.2 mg/dl (8.4-10.2); Carbon Dioxide 32 mmol/L (22-30); Chloride 103 mmol/L (98-107); Estimated Creatinine Clearance 100 ml/min; GGTP 531 U/L (15-73); Glucose 81 mg/dl (70-99); LDH 293 U/L (120-246); Magnesium 1.8 mg/dl (1.6-2.3); Phosphorus 1.6 mg/dl (2.5-4.5); Potassium 3.2 mmol/L (3.5-5.1); Sodium 136 mmol/L (135-145); Total Bilirubin 1.4 mg/dl (0.2-1.3); Total Protein 6.4 g/dl (6.3-8.2); eGFR > 60.00
[2023-08-19 07:30] LABS: TSH Reflex To Free T4 2.12 uIU/ml (0.47-4.68)
[2023-08-19] MEDS: TOPROL XL 12.5 MG PO (07:39)
[2023-08-19] MEDS: PROTONIX 40 MG PO (07:39)
[2023-08-19] MEDS: MAGNESIUM OXIDE 500 MG PO ×2 (07:39→20:31)
[2023-08-19] MEDS: FOLVITE 1 MG PO (07:40)
[2023-08-19] MEDS: ATIVAN 1 MG IV (07:40)
[2023-08-19] MEDS: LUMINAL 64.7999999999999972 MG PO ×3 (07:40→21:00)
--- NOTE | 2023-08-19 07:57 | PTCARENOTE ---
pt wakes to name. oriented to self, states no pain. Precedex gtt off prn Ativan given as ordered. pt agitated with u/s tech during test. condom cath on pt. room air breath sounds clear. ivf running as ordered.
--- NOTE | 2023-08-19 08:00 | W.PN.INTV ---
Today's Communication / Plan
Recommendations
MSAS
prn ativan
prn zyprexa
If remains off precedex gtt for today then will downgrade out of ICU to IMU. If patient downgraded then cinder snapper/pulmonary service will sign off. Please reconsult if respiratory issues develop.
Assessment
-
Assessment: 73-year-old male with a past medical history of former tobacco use disorder, GERD, alcohol use disorder and depression who presents from home with weakness, shakiness and difficulty ambulating. Apparently, patient unable to make to the
bathroom due to weakness. When EMS arrived he was tachycardic. In the ER, patient afebrile to 98.3 �F, heart rate 106, respiratory rate 23, BP 121/84 and SpO2 96% on room air. He admitted to drinking 3 drinks per day but he told the hospitalist
he drinks over 10 beers a day. Labs showed metabolic alkalosis with venous pH 7.55, pCO2 40. Serum bicarbonate 31, serum potassium 3.4, chloride 91, lactate 7, total bilirubin 2, WBC 8.9, Hb 12.8 and platelet count low at 94. COVID antigen
negative. Alcohol level was also negative. He was given 1 L NS 0.9% x 1. Initial CXR showed no acute cardiopulmonary process, and a CT head showed bilateral subdural collections which is new compared to prior imaging from November 2022. This is
likely a chronic hygroma. No active IPH seen, nor midline shift. Patient did have a repeat CT head again on 08/17/2023 which showed stable 8 mm bilateral subdural collections without active intracranial hemorrhage. Patient was admitted to the
hospitalist service for alcohol withdrawal. Patient's withdrawal symptoms worsened despite getting Ativan multiple times and patient upgraded to ICU for Precedex infusion and critical care services consulted for additional
management/recommendations.
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
Impression:
#Acute alcohol withdrawal with acute agitation requiring precedex gtt
#Hyponatremia -likely due to beer potomania - Na now normalized
#Transaminitis with elevated AST and hyperbilirubinemia -due to alcoholic liver disease - LFTs and T. bili are stable - no need for steroids at this time
#Thrombocytopenia/leukopenia/anemia -patient does not have cirrhosis as his INR is <1.5 and liver parenchyma looks normal on abd US; this could still very well be alcoholic hepatitis
#Generalized weakness
#Alcohol abuse
#GERD
#Chronic subdural hematoma
#Former tobacco use disorder
Plan:
- Wean off precedex gtt
- Continue phenobarbital protocol
- prn zyprexa but monitor QTc
- continue MSAS with prn ativan
- Trend ammonia level
- Trend LFTs
- Trend sNa level and aim for 135-145mmol/L
- check hepatitis panel - pending
- thiamine, folate and MVN
- Maintain MAP>65
- PT/OT once he is medical stable
- Replete K>3.5, Mg>1.8
- DVT ppx
Dispo: If remains off precedex gtt for today then will downgrade out of ICU to IMU. If patient downgraded then cinder snapper/pulmonary service will sign off. Thank you for allowing us to be involved in the care of this patient. Please reconsult if
respiratory issues develop.
Data:
CXR 08-16-2023: No acute cardiopulmonary process.
CT Head 08-17-2023:
There are stable 8 mm in diameter bilateral low-density frontotemporal subdural collections which had not been present on the 11/20/2022 examination and which may be hygromas or subdural hematomas/seromas.
There is no acute intracranial hemorrhage
There is mild diffuse cortical and cerebellar atrophy
Abd US with doppler 08-19-2023:
1. No ascites is demonstrated.
2. Normal spectral Doppler waveform analysis of the hepatic vasculature.
3. Anatomy was incompletely imaged due to lack of patient cooperation.
Subjective Dataa
Subjective Data
Date of Service:
Date of Service: August 19, 2023
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
Subjective:
Seen this AM. MSAS today is 8. Restraints in place. Off precedex since this AM. BP this AM 163/84 and HR 82. He is on room air breathing comfortably. He is more awake and calm today. Still confused at times.
Review of Systems
General: Other (negative unless mentioned above)
Objective Data
Data Reviewed
Vital Signs / I&O / Oxygen:
Vital Signs
Temp Pulse Resp BP Pulse Ox
97.3 F 64 12 158/88 99
08/19/23 07:39 08/19/23 08:00 08/19/23 08:00 08/19/23 08:00 08/19/23 07:23
Intake and Output
08/18/23 08/19/23 08/20/23
06:59 06:59 06:59
Intake Total 2652.5 / 2652.5 2656.0 / 2756.0 300 / 300
Output Total 1700 / 1700 2850 / 2850
Balance 952.5 / 952.5 -194.0 / -94.0 300 / 300
SaO2 99
Physical Exam
General: Comfortable
HEENT: Normocephalic and Anicteric
Cardiovascular: S1-S2 and Peripheral Edema (negative)
Respiratory: Clear, Wheeze (n), Crackles (negative), Rhonchi (negative) and Non-Labored Respirations
GI: Soft, Non Distended and Non Tender
Neurology: Awake and Alert
Skin: Warm and Dry
Labs/Micro/Reports
Lab Data
08/19/23 06:16
08/19/23 06:16
Laboratory Results
08/18/23 08/19/23
16:32 06:16
PT Cancelled 14.1
INR Cancelled 1.09
APTT Cancelled 26.1
Microbiology
08/16/23 20:30 Blood/Venous Blood Culture - Preliminary
No Growth in 48 hours- Final report to follow
08/16/23 20:30 Nasal Swab Influenza Types A & B ([facility]) - Final
Negative for Influenza A & B, NAAT
Negative results must be combined with clinical observations
and patient history.
Nucleic Acid Amplification test (NAAT)performed on the
[employer] platform.
--- NOTE | 2023-08-19 10:23 | PN.CDI ---
CDI
- -
CDI:
Physician Documentation Request
Admit Date: 08/16/23 23:52
Dear Doctor Ginny,
Patient admitted with alcohol use disorder and delirium tremens.
Laboratory Tests
08/17/23 08/18/23 08/19/23
04:32 03:34 06:16
WBC 4.2 L 3.8 L 3.5 L
RBC 3.37 L 3.36 L 3.63 L
Hgb 10.6 L 10.7 L 11.4 L
Plt Count 50 L 49 L 52 L
Based on the above, could you clarify in the progress notes, the appropriate diagnosis, if significant, that supports the above abnormalities and additional evaluation, monitoring and/or treatment rendered:
Pancytopenia
Abnormal lab values insignificant
Other
Use of terms such as suspected, likely, concern for, or probable (associated with a specific diagnosis that is being evaluated, monitored, or treated as if it exists) are acceptable and can be coded in the inpatient setting, when documented at the
time of discharge.
Thank you,
Ivette Tate RN, BSN
CDI Specialist
Available via [employer] text
Please use your independent medical judgment in providing your response.
--- NOTE | 2023-08-19 10:31 | PN.CDI ---
CDI
- -
CDI:
Physician Documentation Request
Admit Date: 08/16/23 23:52
Dear Doctor Ginny,
Patient admitted with alcohol use disorder and delirium tremens.
08/18 Hospitalist PN: 'Would discontinue HCTZ in this chronic alcoholic / beer drinker with high risk for hyponatremia.'
Laboratory Tests
08/17/23 08/18/23 08/18/23
04:32 03:34 15:05
Sodium 133 L 132 L 129 L
Based on the above, could you clarify in the progress notes, the appropriate diagnosis, if significant, that supports the above abnormalities and additional evaluation, monitoring and/or treatment rendered:
Hyponatremia
Abnormal lab value insignificant
Other
Use of terms such as suspected, likely, concern for, or probable (associated with a specific diagnosis that is being evaluated, monitored, or treated as if it exists) are acceptable and can be coded in the inpatient setting, when documented at the
time of discharge.
Thank you,
Ivette Tate RN, BSN
CDI Specialist
Available via [employer] text
Please use your independent medical judgment in providing your response.
[2023-08-19 10:43] LABS: Amphetamines Negative (Negative); Barbiturates Positive (Negative); Benzodiazepines Positive (Negative); Buprenorphine Negative (Negative); Cocaine Negative (Negative); Marijuana Negative (Negative); Methadone Negative (Negative); Methamphetamines Negative (Negative); Opiates Negative (Negative); Phencyclidine Negative (Negative); Tricyclic Antidepressants Negative (Negative)
[2023-08-19 12:04] LABS: Fentanyl, Urine Negative (Negative)
[2023-08-19] MEDS: KCL ELIXIR 40 MEQ PO (13:07)
[2023-08-19] MEDS: NEUTRA-PHOS POWDER PACKET 500 MG PO ×2 (13:07→20:32)
--- NOTE | 2023-08-19 13:45 | PTCARENOTE ---
pt is more alert now. asking coherent questions. following commands. restraints removed. pt does have hand tremors and weak grasp. fed breakfast. good apatite.
--- NOTE | 2023-08-19 15:42 | W.PN.HOSP.TC ---
Today's Communication/Plan
-
Continue DT management
Follow electrolytes
Total Critical Care Time__45___ minutes. I was immediately available to the patient and staff. I personally examined, reviewed labs, diagnostic images/reports, interpretations, treatment plans, discussed patient care with other providers and
family or caregivers (if patient is unable to make decisions), entered orders as appropriate and documented the medical record.
Assessment / Plan
Assessment / Plan
Impression:
Altered mental status secondary to delirium tremens
Falls at home
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
Severe alcohol use disorder repeat
Alcoholic hepatitis
Lactic acidosis
Hyponatremia
Hypokalemia
Conditions prior to admission:
Essential hypertension
Chronic iron deficiency anemia
Anxiety/depression.
Plan:
Altered mental status secondary to DT/TME.
Severe alcohol use disorder
Alcoholic hepatitis, mild
Lactic acidosis secondary to alcohol improved with IV fluids.
MSAS with lorazepam.
Phenobarbital.
Given breakthrough agitation required transfer to ICU with initiation of Precedex on 08/18. Improved and weaned off Precedex by
Monitor closely
Continue thiamine
Alcoholic hepatitis.
Monitor LFTs.
Clinically no evidence of cirrhosis
Ultrasound of the abdomen without ascites
Ammonia level normal.
Diet has been advanced.
Bilateral frontal subdural hematoma/old hygroma.
Repeated CT scan with no evidence of expansion.
Neurosurgery input appreciated.
Essential hypertension
Continue metoprolol
Hold HCTZ
Iron Deficiency Anemia
�- Stable.� Hgb is improved from prior.
�- Continue iron supplementation.
�- Follow for any changes.
�- GI evaluations done 04/2023 were unremarkable.
Anxiety / Depression
�- Continue sertraline.
CODE STATUS DNR
Anticipated Discharge: > 48 hours
Subjective/Interval History
-
Date of Service: August 19, 2023
Objective Data
-
Labs:
Laboratory Results
08/19/23
06:16
WBC 3.5 L
Hgb 11.4 L
Hct 34.5 L
Plt Count 52 L
PT 14.1
INR 1.09
APTT 26.1
Sodium 136
Potassium 3.2 L
Chloride 103
Carbon Dioxide 32 H
BUN 4 L
Creatinine 0.6 L
Glucose 81
Calcium 8.2 L
Total Bilirubin 1.4 H
AST 113 H
ALT 33
Alkaline Phosphatase 138 H
Vital Signs:
Vital Signs
Temp Pulse Resp BP Pulse Ox
97.9 F 86 25 139/89 99
08/19/23 11:42 08/19/23 15:00 08/19/23 15:00 08/19/23 14:00 08/19/23 11:00
I&O
08/18/23 08/19/23 08/20/23
06:59 06:59 06:59
Intake Total 2652.5 / 2652.5 2656.0 / 2756.0 1350 / 1350
Output Total 1700 / 1700 2850 / 2850
Balance 952.5 / 952.5 -194.0 / -94.0 1350 / 1350
Physical Exam
-
General: Well Developed and No Apparent Distress
HEENT: Normocephalic, Atraumatic and Moist Mucous Membranes
Respiratory: Clear to Auscultation
Cardiac: Regular Rhythm and S1/S2; Negative Murmur, Rub or Gallop
GI: Soft, Nontender, Nondistended and Normal Bowel Sounds; Negative Organomegaly
Rectal: Deferred by Provider
Musculoskeletal: No Clubbing, No Cyanosis and No Edema
Skin: Negative Rash
Neuro: Awake, Alert, Oriented (Name and place, not in time) and Nonfocal/Grossly Intact
--- NOTE | 2023-08-19 16:01 | CM ---
CM following re: discharge planning.
Reviewed pt's chart, met with pt. Per Rounds meeting, pt wakes to name, oriented to self, agitated when awake, continue supportive care.
D/c plan: [facility] SN[facility] when medically stable for a short term and a group home care.
CM will follow with discharge plan updates as hospitalization progresses.
[2023-08-19] MEDS: LIPITOR 10 MG PO (16:14)
--- NOTE | 2023-08-19 16:40 | PTCARENOTE ---
pt walked to bathroom with one person assist. weak unsteady on feet.
--- NOTE | 2023-08-19 20:00 | PTCARENOTE ---
Received report from sundeep RN, assumed care of patient at 1900. Nursing assessment completed and as documented, Ox3 but with confused and forgetful conversation. On RA, lungs CTA, SR/ST on monitor rates 90-100's, blood pressures elevated
160-170's but remains asymptomatic, +PP, incontinent of bowel and bladder, #[address] draining clear yellow urine. Incontinent of BM in brief, hygiene care provided, CHG bath and gown changed. Patient able to turn self in bed. MASD
noted to perineum, calazime cream applied, scattered scabs noted on BLLE. Medications given without difficulty. [facility] protocol, see worklist for charting. Call lawton within reach, remains on medsitter, bed alarmed, care ongoing.
[2023-08-19] MEDS: HEPARIN 5000 UNITS SC (20:31)
[2023-08-19 20:54] LABS: Hepatitis B Surface Antigen Negative (Negative)
[2023-08-19 20:55] LABS: Hepatitis B Core Ab, IgM Negative (Negative)
[2023-08-19 21:00] LABS: Hepatitis A IgM Antibody Negative (Negative)
[2023-08-19] MEDS: PEPCID 40 MG PO (21:00)
[2023-08-19] MEDS: ZYPREXA 2.5 MG PO (21:00)
[2023-08-19 21:11] LABS: Hepatitis B Core Ab, Total Negative (Negative); Hepatitis B Surface Antibody Negative; Hepatitis C Antibody Negative (Negative)
[2023-08-20] VITALS (13 sets, daily range): BP systolic 123–169; BP diastolic 66–132; BMI 19.7
[2023-08-20] MEDS: LR 1000 IV ×2 (00:07→09:08)
[2023-08-20] MEDS: ATIVAN 1 MG PO ×3 (01:17→09:22)
[2023-08-20 04:37] LABS: % Basophils 0.5 % (0-2); % Eosinophils 2.2 % (0-6); % Immature Granulocytes 0.2 % (0-0.5); % Lymphocytes 29.9 % (20.5-51.1); % Monocytes 9.5 % (1.7-9.3); % Neutrophils 57.7 % (42.2-75.2); Absolute Eosinophils 0.1 10^3/uL (0-0.7); Absolute Lymphocytes 1.2 10^3/uL (1.2-3.4); Absolute Monocytes 0.4 10^3/uL (0.1-0.6); Absolute Neutrophils 2.3 10^3/uL (1.4-6.5); Hematocrit 39.4 % (39.0-52.0); Hemoglobin 13.5 g/dL (13.0-18.0); Mean Corp Hgb Conc. 34.3 g/dL (33.0-37.0); Mean Corpuscular Hgb 32.3 pg (27.0-31.0); Mean Corpuscular Volume 94.3 fL (80.0-94.0); Nucleated Red Blood Cells % 0 % (-); Platelet Count 54 10^3/uL (130-400); Red Blood Cell Count 4.18 10^6/uL (4.70-6.10); Red Cell Dist. Width 13.8 % (11.5-14.5)
[2023-08-20 05:01] LABS: ALT (SGPT) 37 U/L (0-50); AST (SGOT) 116 U/L (17-59); Albumin 3.6 g/dl (3.5-5.0); Alkaline Phosphatase 136 U/L (38-126); Blood Urea Nitrogen 5 mg/dl (9-20); Calcium 8.7 mg/dl (8.4-10.2); Carbon Dioxide 29 mmol/L (22-30); Chloride 99 mmol/L (98-107); Estimated Creatinine Clearance 100 ml/min; Glucose 74 mg/dl (70-99); Magnesium 1.6 mg/dl (1.6-2.3); Potassium 3.6 mmol/L (3.5-5.1); Sodium 135 mmol/L (135-145); Total Bilirubin 1.6 mg/dl (0.2-1.3); Total Protein 7.6 g/dl (6.3-8.2); eGFR > 60.00
[2023-08-20] MEDS: LUMINAL 64.7999999999999972 MG PO ×2 (09:02→21:12)
[2023-08-20] MEDS: PROTONIX 40 MG PO (09:02)
[2023-08-20] MEDS: NEUTRA-PHOS POWDER PACKET 500 MG PO ×2 (09:02→20:30)
[2023-08-20] MEDS: VITAMIN B1 100 MG PO ×2 (09:04→20:31)
[2023-08-20] MEDS: MAGNESIUM OXIDE 500 MG PO ×2 (09:05→20:31)
[2023-08-20] MEDS: HEPARIN 5000 UNITS SC ×2 (09:05→20:31)
[2023-08-20] MEDS: TOPROL XL 12.5 MG PO (09:05)
[2023-08-20] MEDS: FOLVITE 1 MG PO (09:05)
--- NOTE | 2023-08-20 11:55 | W.PN.HOSP.TC ---
Addendum entered and electronically signed by Alfred Gross MD 08/20/23 16:48:
Patient seen and examined
Discussed with resident
Discussed with nursing
Impression/plan:
Severe DT
Severe alcohol use disorder
Suspect underlying dementia
MSAS remains high 6�7
Continue lorazepam
Continue phenobarbital taper
Currently off Precedex
Given mental status oral intake is minimal
Renew IV fluids and replete potassium.
Original Note:
Today's Communication/Plan
-
Continue phenobarbital protocol
Assessment / Plan
Assessment / Plan
Impression:
Altered mental status secondary to delirium tremens
Falls at home
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
Severe alcohol use disorder repeat
Alcoholic hepatitis
Lactic acidosis
Hyponatremia
Hypokalemia
Conditions prior to admission:
Essential hypertension
Chronic iron deficiency anemia
Anxiety/depression.
Plan:
Altered mental status secondary to DT/TME.
Severe alcohol use disorder
Alcoholic hepatitis, mild
Lactic acidosis secondary to alcohol improved with IV fluids.
MSAS with lorazepam.
Phenobarbital.
Given breakthrough agitation required transfer to ICU with initiation of Precedex on 08/18. Improved and weaned off Precedex by
Monitor closely
Continue thiamine
Alcoholic hepatitis.
Monitor LFTs.
Clinically no evidence of cirrhosis
Ultrasound of the abdomen without ascites
Ammonia level normal.
Diet has been advanced.
Bilateral frontal subdural hematoma/old hygroma.
Repeated CT scan with no evidence of expansion.
Neurosurgery input appreciated.
Essential hypertension
Continue metoprolol
Hold HCTZ
Iron Deficiency Anemia
�- Stable.� Hgb is improved from prior.
�- Continue iron supplementation.
�- Follow for any changes.
�- GI evaluations done 04/2023 were unremarkable.
Anxiety / Depression
�- Continue sertraline.
CODE STATUS DNR
Anticipated Discharge: > 48 hours
Subjective/Interval History
-
Date of Service: August 20, 2023
Objective Data
-
Labs:
Laboratory Results
08/20/23
04:24
WBC 4.0 L
Hgb 13.5
Hct 39.4
Plt Count 54 L
Sodium 135
Potassium 3.6
Chloride 99
Carbon Dioxide 29
BUN 5 L
Creatinine 0.5 L
Glucose 74
Calcium 8.7
Total Bilirubin 1.6 H
AST 116 H
ALT 37
Alkaline Phosphatase 136 H
Vital Signs:
Vital Signs
Temp Pulse Resp BP Pulse Ox
98.5 F 85 24 152/95 98
08/20/23 11:19 08/20/23 09:17 08/20/23 09:00 08/20/23 09:17 08/20/23 06:00
I&O
08/19/23 08/20/23 08/21/23
06:59 06:59 06:59
Intake Total 2656.0 / 2756.0 2690 / 2690
Output Total 2850 / 2850 2825 / 2825 1325 / 1325
Balance -194.0 / -94.0 -135 / -135 -1325 / -1325
Physical Exam
-
General: Well Developed and No Apparent Distress
HEENT: Normocephalic, Atraumatic and Moist Mucous Membranes
Respiratory: Clear to Auscultation
Cardiac: Regular Rhythm and S1/S2; Negative Murmur, Rub or Gallop
GI: Soft, Nontender, Nondistended and Normal Bowel Sounds; Negative Organomegaly
Rectal: Deferred by Provider
Musculoskeletal: No Clubbing, No Cyanosis and No Edema
Skin: Negative Rash
Neuro: Awake, Alert and Nonfocal/Grossly Intact
--- NOTE | 2023-08-20 14:02 | CM ---
CM following re: discharge planning.
Reviewed pt's chart, met with pt. Per Rounds meeting, pt , AAOx2 but confused and forgetful, remains on medsitter, continue supportive care.
PT and OT evaluations noted - SNF level of care recommended.
D/c plan: [facility] when medically stable for a short term and a [facility] care.
CM will follow with discharge plan updates as hospitalization progresses.
[2023-08-20] MEDS: D5/0.45%NSS with KCL 20 MEQ 1000 IV (14:28)
[2023-08-20] MEDS: LIPITOR PO ×2 (17:38→17:46)
[2023-08-20] MEDS: LUMINAL PO ×2 (17:38→17:46)
--- NOTE | 2023-08-20 18:00 | PTCARENOTE ---
Could not convince patient to take 16:00 Phenobarb Dose. Attempted to give in apple sauce, patient refused. Notified Dr. Gross.
[2023-08-20] MEDS: ZYPREXA 2.5 MG PO (21:12)
[2023-08-20] MEDS: PEPCID 40 MG PO (21:13)
--- NOTE | 2023-08-20 22:14 | PTCARENOTE ---
Patient agitated but redirected, compliant with medication. Denies pain, requesting to watch movie. HOP elevated but patient refused dinner. Able to tolerate sips of water.
--- NOTE | 2023-08-20 23:46 | PTCARENOTE ---
Patient transferred with all belongings, patient stayed calm during move. Report given to Nurse.
[2023-08-21] VITALS (7 sets, daily range): BP systolic 107–160; BP diastolic 74–102; PULSE 78–105; BMI 19.2; BMI 19.4
[2023-08-21] MEDS: D5/0.45%NSS with KCL 20 MEQ 1000 IV ×2 (00:25→11:20)
[2023-08-21] MEDS: LUMINAL 32.3999999999999986 MG PO ×3 (08:30→21:10)
[2023-08-21] MEDS: MAGNESIUM OXIDE 500 MG PO ×2 (08:30→21:09)
[2023-08-21] MEDS: FOLVITE 1 MG PO (08:31)
[2023-08-21] MEDS: HEPARIN 5000 UNITS SC ×2 (08:31→21:07)
[2023-08-21] MEDS: PROTONIX 40 MG PO (08:31)
[2023-08-21] MEDS: VITAMIN B1 100 MG PO ×2 (08:31→21:09)
[2023-08-21] MEDS: TOPROL XL 12.5 MG PO (08:32)
[2023-08-21] MEDS: NEUTRA-PHOS POWDER PACKET 500 MG PO ×2 (09:28→21:11)
--- NOTE | 2023-08-21 10:38 | W.PN.HOSP.TC ---
Today's Communication/Plan
-
Continue phenobarbital tapering.
Assessment / Plan
Assessment / Plan
Physical exam:
General: Acutely ill but No Apparent Distress
HEENT: Normocephalic, Atraumatic and Moist Mucous Membranes
Respiratory: Clear to Auscultation; Negative Wheezes, Rales or Rhonchi
Cardiac: Regular Rhythm and S1/S2
GI: Soft, Nontender and Nondistended
Musculoskeletal: No Clubbing, No Cyanosis and No Edema
Neuro: Awake, Alert and Oriented
Psych: Calm
Impression:
Altered mental status secondary to delirium tremens
Falls at home
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
Severe alcohol use disorder repeat
Alcoholic hepatitis
Lactic acidosis
Hyponatremia
Hypokalemia
Conditions prior to admission:
Essential hypertension
Chronic iron deficiency anemia
Anxiety/depression.
Plan:
Altered mental status secondary to DT/TME.
Severe alcohol use disorder
Alcoholic hepatitis, mild
Lactic acidosis secondary to alcohol improved with IV fluids.
MSAS with lorazepam.
Phenobarbital.
Given breakthrough agitation required transfer to ICU with initiation of Precedex on 08/18. Improved and weaned off Precedex by
Monitor closely
Continue thiamine
MSA elevated but stable
Discussed with RN on 08/20 and has not required any extra benzodiazepines but continue on phenobarbital tapering.
Alcoholic hepatitis.
Monitor LFTs.
Clinically no evidence of cirrhosis
Ultrasound of the abdomen without ascites
Ammonia level normal.
Diet has been advanced.
Bilateral frontal subdural hematoma/old hygroma.
Repeated CT scan with no evidence of expansion.
Neurosurgery input appreciated.
Essential hypertension
Continue metoprolol
Hold HCTZ
Iron Deficiency Anemia
�- Stable.� Hgb is improved from prior.
�- Continue iron supplementation.
�- Follow for any changes.
�- GI evaluations done 04/2023 were unremarkable.
Anxiety / Depression
�- Continue sertraline.
CODE STATUS DNR
Anticipated Discharge: > 48 hours
Subjective/Interval History
-
Date of Service: August 21, 2023
Patient alert but disoriented, and denies nausea or vomiting.
Objective Data
-
Vital Signs:
Vital Signs
Temp Pulse Resp BP Pulse Ox
97.8 F 87 16 139/81 97
08/21/23 07:55 08/21/23 08:32 08/21/23 07:55 08/21/23 08:32 08/21/23 07:55
I&O
08/20/23 08/21/23 08/22/23
06:59 06:59 06:59
Intake Total 2690 / 2690 2250 / 2250
Output Total 2825 / 2825 2049
Balance -135 / -135 200 / 200
--- NOTE | 2023-08-21 11:43 | PTCARENOTE ---
Assumed care of pt from previous nurse. pt denies pain. Pt MSAS is a 3. Pt is on tele running nsr. pt call lawton is within reach, pt rings juan carlos. will cont to monitor
[2023-08-21] MEDS: LIPITOR 10 MG PO (17:55)
[2023-08-21] MEDS: ZYPREXA 2.5 MG PO (21:09)
[2023-08-21] MEDS: PEPCID 40 MG PO (21:10)
[2023-08-21] MEDS: D5/0.45%NSS with KCL 20 MEQ IV (23:30)
[2023-08-22] VITALS (7 sets, daily range): BP systolic 97–172; BP diastolic 59–99; PULSE 71–96; BMI 19.7
[2023-08-22] MEDS: ATIVAN 1 MG PO ×3 (06:18→23:50)
--- NOTE | 2023-08-22 08:34 | W.PN.HOSP.TC ---
Today's Communication/Plan
-
Continue phenobarbital tapering and benzodiazepines. Monitor mental status and behavior.
Assessment / Plan
Assessment / Plan
Physical exam:
General: Acutely ill but No Apparent Distress
HEENT: Normocephalic, Atraumatic and Moist Mucous Membranes
Respiratory: Clear to Auscultation; Negative Wheezes, Rales or Rhonchi
Cardiac: Regular Rhythm and S1/S2
GI: Soft, Nontender and Nondistended
Musculoskeletal: No Clubbing, No Cyanosis and No Edema
Neuro: Awake, Alert and Disoriented
Psych: Anxious and fidgety today
Impression:
Altered mental status secondary to delirium tremens
Falls at home
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
Severe alcohol use disorder repeat
Alcoholic hepatitis
Lactic acidosis
Hyponatremia
Hypokalemia
Conditions prior to admission:
Essential hypertension
Chronic iron deficiency anemia
Anxiety/depression.
Plan:
Altered mental status secondary to DT/TME.
Severe alcohol use disorder
Alcoholic hepatitis, mild
Lactic acidosis secondary to alcohol improved with IV fluids.
MSAS with lorazepam.
Phenobarbital.
Given breakthrough agitation required transfer to ICU with initiation of Precedex on 08/18. Improved and weaned off Precedex by
Monitor closely
Continue thiamine
MSA elevated
Discussed with RN on 08/21 and will use benzodiazepines as needed and continue with phenobarbital.
Alcoholic hepatitis.
Monitor LFTs periodically.
Clinically no evidence of cirrhosis
Ultrasound of the abdomen without ascites
Ammonia level normal.
Diet has been advanced.
Bilateral frontal subdural hematoma/old hygroma.
Repeated CT scan with no evidence of expansion.
Neurosurgery input appreciated.
Essential hypertension
Continue metoprolol
Hold HCTZ
Iron Deficiency Anemia
�- Stable.� Hgb is improved from prior.
�- Continue iron supplementation.
�- Follow for any changes.
�- GI evaluations done 04/2023 were unremarkable.
Anxiety / Depression
�- Continue sertraline.
CODE STATUS DNR
Anticipated Discharge: 24 - 48 hours
Subjective/Interval History
-
Date of Service: August 22, 2023
Patient alert but disoriented. Today a little more restless. No chest pain or shortness of breath.
Objective Data
-
Labs:
Laboratory Results
08/22/23
06:00
WBC Pending
Hgb Pending
Hct Pending
Plt Count Pending
PT Pending
INR Pending
Sodium Pending
Potassium Pending
Chloride Pending
Carbon Dioxide Pending
BUN Pending
Creatinine Pending
Glucose Pending
Calcium Pending
Total Bilirubin Pending
AST Pending
ALT Pending
Alkaline Phosphatase Pending
Vital Signs:
Vital Signs
Temp Pulse Resp BP Pulse Ox
97.9 F 73 16 164/92 99
08/22/23 04:13 08/22/23 04:13 08/22/23 04:13 08/22/23 04:13 08/22/23 04:13
I&O
08/21/23 08/22/23 08/23/23
06:59 06:59 06:59
Intake Total 2250 / 2250 2400 / 2400
Output Total 2050 / 0 2200 / 2200
Balance 200 / 200 200 / 200
[2023-08-22 09:09] LABS: Hematocrit 32.2 % (39.0-52.0); Mean Corp Hgb Conc. 32.6 g/dL (33.0-37.0); Mean Corpuscular Hgb 31.2 pg (27.0-31.0); Mean Corpuscular Volume 95.5 fL (80.0-94.0); Mean Platelet Volume 11.6 fL (7.4-10.4); Platelet Count 80 10^3/uL (130-400); Red Blood Cell Count 3.37 10^6/uL (4.70-6.10); Red Cell Dist. Width 14.4 % (11.5-14.5); White Blood Cell Count 3.8 10^3/uL (4.8-10.8)
[2023-08-22 09:13] LABS: Hemoglobin 10.5 g/dL (13.0-18.0); INR 1.06; PT 13.6 Sec (11.4-14.6)
[2023-08-22] MEDS: NEUTRA-PHOS POWDER PACKET 500 MG PO ×2 (09:25→21:14)
[2023-08-22] MEDS: TOPROL XL 12.5 MG PO (09:26)
[2023-08-22] MEDS: FOLVITE 1 MG PO (09:26)
[2023-08-22] MEDS: HEPARIN SC (09:26)
[2023-08-22] MEDS: LUMINAL 32.3999999999999986 MG PO ×3 (09:26→21:17)
[2023-08-22] MEDS: VITAMIN B1 100 MG PO ×2 (09:26→21:14)
[2023-08-22] MEDS: PROTONIX 40 MG PO (09:26)
[2023-08-22] MEDS: MAGNESIUM OXIDE 500 MG PO ×2 (09:26→21:15)
[2023-08-22 09:42] LABS: ALT (SGPT) 31 U/L (0-50); AST (SGOT) 68 U/L (17-59); Albumin 3.5 g/dl (3.5-5.0); Alkaline Phosphatase 115 U/L (38-126); Blood Urea Nitrogen 5 mg/dl (9-20); Calcium 8.4 mg/dl (8.4-10.2); Carbon Dioxide 26 mmol/L (22-30); Chloride 101 mmol/L (98-107); Estimated Creatinine Clearance 101 ml/min; Glucose 79 mg/dl (70-99); Magnesium 1.6 mg/dl (1.6-2.3); Potassium 3.8 mmol/L (3.5-5.1); Sodium 132 mmol/L (135-145); Total Protein 6.6 g/dl (6.3-8.2); eGFR > 60.00
[2023-08-22 09:47] LABS: Absolute Neutrophils -Man Diff 1.8 10^3/uL (1.4-6.5); Anisocytosis Slight; Band Neutrophils 0 % (0-3); Eosinophils 6 % (0-6); Hypochromasia Slight; Lymphocytes 31 % (20-51); Monocytes 14 % (2-9); Normal RBC Morphology No; Platelets Checked Yes; Segmented Neutrophils 49 % (42-75); Total Cells Counted 100
[2023-08-22] MEDS: HEPARIN 5000 UNITS SC ×2 (11:02→21:15)
[2023-08-22] MEDS: LUMINAL PO (17:14)
[2023-08-22] MEDS: LIPITOR PO (17:57)
[2023-08-22] MEDS: LIPITOR 10 MG PO (18:02)
[2023-08-22] MEDS: PEPCID 40 MG PO (21:17)
[2023-08-22] MEDS: ZYPREXA 2.5 MG PO (21:17)
[2023-08-23] VITALS (8 sets, daily range): BP systolic 124–168; BP diastolic 74–99; PULSE 71–93; O2SAT 100; BMI 19.5
[2023-08-23] MEDS: ATIVAN 1 MG PO (02:42)
[2023-08-23] MEDS: VITAMIN B1 100 MG PO ×2 (07:45→21:14)
[2023-08-23] MEDS: FOLVITE 1 MG PO (07:45)
[2023-08-23] MEDS: MAGNESIUM OXIDE 500 MG PO ×2 (07:45→21:14)
[2023-08-23] MEDS: PROTONIX 40 MG PO (07:45)
[2023-08-23] MEDS: TOPROL XL 12.5 MG PO (07:45)
[2023-08-23] MEDS: NEUTRA-PHOS POWDER PACKET 500 MG PO ×2 (07:46→21:14)
[2023-08-23] MEDS: HEPARIN 5000 UNITS SC ×2 (07:46→21:14)
--- NOTE | 2023-08-23 13:03 | W.PN.HOSP.TC ---
Addendum entered and electronically signed by Alfred Gross MD 08/23/23 17:49:
Patient seen and examined.
Discussed with resident
Discussed with patient's daughter at the bedside
Impression/plan:
Severe alcohol use disorder baseline delirium tremens.
Suspected underlying dementia
Alcoholic hepatitis, mild
Resolved lactic acidosis
Cognitive status improved with no evidence of agitation
Completed course of phenobarbital.
Required short course of Precedex while in ICU.
Currently as needed lorazepam only for agitation which is currently not observed.
Continue monitor closely in terms of cognition, oral intake and ability for self support
Original Note:
Today's Communication/Plan
-
Continue benzodiazepines as needed
Assessment / Plan
Assessment / Plan
Impression:
Altered mental status secondary to delirium tremens
Falls at home
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
Severe alcohol use disorder repeat
Alcoholic hepatitis
Lactic acidosis
Hyponatremia
Hypokalemia
Conditions prior to admission:
Essential hypertension
Chronic iron deficiency anemia
Anxiety/depression.
Plan:
Altered mental status secondary to DT/TME.
Severe alcohol use disorder
Alcoholic hepatitis, mild
Lactic acidosis secondary to alcohol improved with IV fluids.
MSAS with lorazepam.
Phenobarbital.
Given breakthrough agitation required transfer to ICU with initiation of Precedex on 08/18. Improved and weaned off Precedex by
Monitor closely
Continue thiamine
MSA elevated
Discussed with RN on 08/21 and will use benzodiazepines as needed and continue with phenobarbital.
Alcoholic hepatitis.
Monitor LFTs periodically.
Clinically no evidence of cirrhosis
Ultrasound of the abdomen without ascites
Ammonia level normal.
Diet has been advanced.
Bilateral frontal subdural hematoma/old hygroma.
Repeated CT scan with no evidence of expansion.
Neurosurgery input appreciated.
Essential hypertension
Continue metoprolol
Hold HCTZ
Iron Deficiency Anemia
�- Stable.� Hgb is improved from prior.
�- Continue iron supplementation.
�- Follow for any changes.
�- GI evaluations done 04/2023 were unremarkable.
Anxiety / Depression
�- Continue sertraline.
CODE STATUS DNR
Anticipated Discharge: > 48 hours
Subjective/Interval History
-
Date of Service: August 23, 2023
Objective Data
-
Vital Signs:
Vital Signs
Temp Pulse Resp BP Pulse Ox
97.4 F 77 16 163/99 95
08/23/23 07:19 08/23/23 07:19 08/23/23 07:19 08/23/23 07:19 08/23/23 08:00
I&O
08/22/23 08/23/23 08/24/23
06:59 06:59 06:59
Intake Total 2400 / 2400 2280 / 2280
Output Total 2200 / 2200 1950 / 1950
Balance 200 / 200 330 / 330
Physical Exam
-
General: No Apparent Distress
HEENT: Normocephalic, Atraumatic and Moist Mucous Membranes
Respiratory: Clear to Auscultation; Negative Wheezes or Rales
Cardiac: Regular Rhythm and S1/S2
GI: Soft, Nontender and Nondistended
Musculoskeletal: No Clubbing, No Cyanosis and No Edema
Neuro: Awake and Alert
--- NOTE | 2023-08-23 15:08 | CM ---
Chart reviewed and plan is for skilled placement, referral sent to [facility], patient needs to be off medsitter.
Plan; skilled placement when stable.
[2023-08-23] MEDS: LIPITOR 10 MG PO (17:23)
[2023-08-23] MEDS: ZYPREXA 2.5 MG PO (21:14)
[2023-08-23] MEDS: PEPCID 40 MG PO (21:14)
--- NOTE | 2023-08-23 23:20 | PTCARENOTE ---
Discontinued medsitter at 2245. Patient is doing well with reorientation and has bed alarm on.
[2023-08-24 03:15] VITALS: BP 129/93; BP 167/106; BP 168/96; PULSE 104; PULSE 108; PULSE 98
[2023-08-24 06:00] VITALS: BMI 19.2; BMI 19.6
[2023-08-24 07:52] VITALS: BP 116/79; BP 130/97; BP 89/54; PULSE 102; PULSE 112; PULSE 122
[2023-08-24 07:55] VITALS: BP 130/97
[2023-08-24 08:12] LABS: Blood Urea Nitrogen 8 mg/dl (9-20); Calcium 8.9 mg/dl (8.4-10.2); Carbon Dioxide 28 mmol/L (22-30); Chloride 98 mmol/L (98-107); Estimated Creatinine Clearance 100 ml/min; Glucose 83 mg/dl (70-99); Potassium 3.7 mmol/L (3.5-5.1); Sodium 132 mmol/L (135-145); eGFR > 60.00
[2023-08-24] MEDS: VITAMIN B1 100 MG PO ×2 (08:56→20:42)
[2023-08-24] MEDS: PROTONIX 40 MG PO (08:56)
[2023-08-24] MEDS: FOLVITE 1 MG PO (08:56)
[2023-08-24] MEDS: HEPARIN 5000 UNITS SC ×2 (08:56→20:41)
[2023-08-24] MEDS: NEUTRA-PHOS POWDER PACKET 500 MG PO ×2 (08:56→20:43)
[2023-08-24] MEDS: TOPROL XL 12.5 MG PO (08:56)
[2023-08-24] MEDS: MAGNESIUM OXIDE 500 MG PO ×2 (08:56→20:42)
[2023-08-24 11:55] VITALS: BP 139/81
[2023-08-24] MEDS: ATIVAN 1 MG PO (11:59)
[2023-08-24] MEDS: TYLENOL 650 MG PO ×2 (12:25→23:15)
--- NOTE | 2023-08-24 12:49 | W.PN.HOSP.TC ---
Addendum entered and electronically signed by Alfred Gross MD 08/24/23 16:56:
Patient seen and examined
Discussed with resident
Discussed with social work assistant and daughter at the bedside
Impression/plan:
Altered mental status secondary to delirium tremens/toxic metabolic encephalopathy with suspected underlying dementia.
Completed phenobarbital taper for delirium tremens.
Discontinue MSAS with lorazepam.
Monitor mental status closely while on Zyprexa
Monitor oral intake
Physical therapy assessment with plan for longterm facility discharge and later consideration of palliative care versus hospice depends on performance status as outpatient.
Noted low-grade fever.
Not offering specific complaints to pinpoint the source.
Chest x-ray with no evidence of acute abnormalities/pneumonia
Urinalysis unremarkable
Blood cultures pending
Tylenol.
Monitor closely for antibiotic
Original Note:
Today's Communication/Plan
-
Episode of recurrent fever.
Workup including Chest Xray shows no acute cardiopulmonary process.
Urine culture Negative
Blood culture pending
Continue Zyprexa
Assessment / Plan
Assessment / Plan
Impression:
Altered mental status secondary to delirium tremens
Falls at home
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
Severe alcohol use disorder repeat
Alcoholic hepatitis
Lactic acidosis
Hyponatremia
Hypokalemia
Conditions prior to admission:
Essential hypertension
Chronic iron deficiency anemia
Anxiety/depression.
Plan:
Altered mental status secondary to DT/TME.
Severe alcohol use disorder
Alcoholic hepatitis, mild
Lactic acidosis secondary to alcohol improved with IV fluids.
MSAS with lorazepam.
Phenobarbital.
Given breakthrough agitation required transfer to ICU with initiation of Precedex on 08/18. Improved and weaned off Precedex by
Monitor closely
Continue thiamine
MSA elevated
Resolved lactic acidosis
Alcoholic hepatitis.
Monitor LFTs periodically.
Clinically no evidence of cirrhosis
Ultrasound of the abdomen without ascites
Ammonia level normal.
Diet has been advanced.
Bilateral frontal subdural hematoma/old hygroma.
Repeated CT scan with no evidence of expansion.
Neurosurgery input appreciated.
Essential hypertension
Continue metoprolol
Hold HCTZ
Iron Deficiency Anemia
�- Stable.� Hgb is improved from prior.
�- Continue iron supplementation.
�- Follow for any changes.
�- GI evaluations done 04/2023 were unremarkable.
Anxiety / Depression
�- Continue sertraline.
CODE STATUS DNR
Anticipated Discharge: Within 24 hours
Subjective/Interval History
-
Date of Service: August 24, 2023
Objective Data
-
Labs:
Laboratory Results
08/24/23 08/24/23
07:05 12:22
WBC Pending
Hgb Pending
Hct Pending
Plt Count Pending
Sodium 132 L
Potassium 3.7
Chloride 98
Carbon Dioxide 28
BUN 8 L
Creatinine 0.6 L
Glucose 83
Calcium 8.9
Vital Signs:
Vital Signs
Temp Pulse Resp BP Pulse Ox
100.9 F H 102 20 130/97 95
08/24/23 07:55 08/24/23 07:55 08/24/23 07:55 08/24/23 07:55 08/24/23 07:55
I&O
08/23/23 08/24/23 08/25/23
06:59 06:59 06:59
Intake Total 2280 / 2280 2280 / 2280
Output Total 1949 / 1949 3050 / 3050
Balance 330 / 330 -770 / -770
Physical Exam
-
General: Well Developed and No Apparent Distress
HEENT: Normocephalic, Atraumatic and Moist Mucous Membranes
Respiratory: Clear to Auscultation
Cardiac: Regular Rhythm and S1/S2; Negative Murmur, Rub or Gallop
GI: Soft, Nontender, Nondistended and Normal Bowel Sounds; Negative Organomegaly
Rectal: Deferred by Provider
Musculoskeletal: No Clubbing, No Cyanosis and No Edema
Skin: Negative Rash
Neuro: Nonfocal/Grossly Intact
[2023-08-24 13:12] LABS: Hematocrit 32.3 % (39.0-52.0); Hemoglobin 10.8 g/dL (13.0-18.0); Mean Corp Hgb Conc. 33.4 g/dL (33.0-37.0); Mean Corpuscular Hgb 31.4 pg (27.0-31.0); Mean Corpuscular Volume 93.9 fL (80.0-94.0); Mean Platelet Volume 11.2 fL (7.4-10.4); Platelet Count 112 10^3/uL (130-400); Red Blood Cell Count 3.44 10^6/uL (4.70-6.10); Red Cell Dist. Width 15.1 % (11.5-14.5); White Blood Cell Count 2.5 10^3/uL (4.8-10.8)
[2023-08-24 13:34] LABS: Absolute Neutrophils -Man Diff 1.4 10^3/uL (1.4-6.5); Anisocytosis Slight; Band Neutrophils 0 % (0-3); Eosinophils 2 % (0-6); Hypochromasia 1+; Lymphocytes 26 % (20-51); Monocytes 15 % (2-9); Normal RBC Morphology No; Platelets Checked Yes; Segmented Neutrophils 57 % (42-75)
[2023-08-24 13:35] LABS: Total Cells Counted 100
[2023-08-24 13:54] LABS: Urine Albumin Negative (Neg - Trace); Urine Bilirubin Negative (Negative); Urine Character Clear (Clear); Urine Color Yellow; Urine Glucose Negative (Negative); Urine Ketone Negative (Negative); Urine Leukocyte Negative (Negative); Urine Nitrite Negative (Negative); Urine Occult Blood Negative (Negative); Urine Urobilinogen Negative (Neg - 1+)
[2023-08-24] MEDS: LIPITOR 10 MG PO (17:44)
[2023-08-24 19:00] VITALS: BP 145/75
[2023-08-24] MEDS: PEPCID 40 MG PO (20:42)
[2023-08-24] MEDS: ZYPREXA 2.5 MG PO (20:42)
[2023-08-24 23:00] VITALS: BP 147/76
[2023-08-25 03:00] VITALS: BP 154/85
[2023-08-25 05:05] VITALS: BMI 19.8
[2023-08-25] MEDS: TYLENOL 650 MG PO ×3 (05:18→20:25)
[2023-08-25 07:05] LABS: Hematocrit 28.2 % (39.0-52.0); Hemoglobin 9.5 g/dL (13.0-18.0); Mean Corp Hgb Conc. 33.7 g/dL (33.0-37.0); Mean Corpuscular Hgb 31.9 pg (27.0-31.0); Mean Corpuscular Volume 94.6 fL (80.0-94.0); Mean Platelet Volume 11.4 fL (7.4-10.4); Platelet Count 114 10^3/uL (130-400); Red Blood Cell Count 2.98 10^6/uL (4.70-6.10); Red Cell Dist. Width 15.1 % (11.5-14.5)
[2023-08-25 07:15] LABS: Blood Urea Nitrogen 10 mg/dl (9-20); Calcium 8.2 mg/dl (8.4-10.2); Carbon Dioxide 23 mmol/L (22-30); Chloride 102 mmol/L (98-107); Estimated Creatinine Clearance 67 ml/min; Glucose 80 mg/dl (70-99); Potassium 3.8 mmol/L (3.5-5.1); Sodium 131 mmol/L (135-145); eGFR > 60.00
[2023-08-25 07:24] VITALS: BP 113/68
[2023-08-25 08:14] LABS: Absolute Neutrophils -Man Diff 1.7 10^3/uL (1.4-6.5); Atypical Lymphocytes 1 %; Band Neutrophils 4 % (0-3); Lymphocytes 31 % (20-51); Monocytes 9 % (2-9); Platelets Checked Yes; Segmented Neutrophils 55 % (42-75)
[2023-08-25 08:16] LABS: Hypochromasia 2+; Normal RBC Morphology No; Total Cells Counted 100
[2023-08-25] MEDS: NEUTRA-PHOS POWDER PACKET 500 MG PO ×2 (08:22→20:25)
[2023-08-25] MEDS: MAGNESIUM OXIDE 500 MG PO (08:22)
[2023-08-25] MEDS: FOLVITE 1 MG PO (08:23)
[2023-08-25] MEDS: TOPROL XL 12.5 MG PO (08:23)
[2023-08-25] MEDS: VITAMIN B1 100 MG PO ×2 (08:23→20:25)
[2023-08-25] MEDS: HEPARIN 5000 UNITS SC ×2 (08:23→20:23)
[2023-08-25] MEDS: PROTONIX 40 MG PO (08:23)
--- NOTE | 2023-08-25 11:32 | W.PN.HOSP.TC ---
Addendum entered and electronically signed by Alfred Gross MD 08/25/23 17:43:
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
Addendum entered and electronically signed by Alfred Gross MD 08/25/23 17:40:
Moderate protein calorie malnutrition
Continue supportive care
Monitor oral intake
Addendum entered and electronically signed by Alfred Gross MD 08/25/23 17:36:
Patient seen and examined
Discussed with resident
Discussed with nursing and daughter at the bedside
Impression/plan:
Resolved delirium tremens
Severe alcohol use disorder with underlying dementia.
Mental status stable.
Monitor closely.
Low-grade fever.
COVID-19 positive on 08/24.
Asymptomatic otherwise with stable respiratory status
Chest x-ray with clear lung rush
Start Paxlovid.
Hold statin while on Paxlovid.
Respiratory precautions
Original Note:
Today's Communication/Plan
-
Noted Low Grade fever
Chest x-ray with no evidence of acute abnormalities/pneumonia
Urinalysis unremarkable
Blood cultures negatives
COVID-19 positive
Start Paxlovid
Physical therapy assessment with [facility]
Assessment / Plan
Assessment / Plan
Impression:
Altered mental status secondary to delirium tremens
Falls at home
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
Severe alcohol use disorder repeat
Alcoholic hepatitis
Lactic acidosis
Hyponatremia
Hypokalemia
Conditions prior to admission:
Essential hypertension
Chronic iron deficiency anemia
Anxiety/depression.
Plan:
Altered mental status secondary to DT/TME.
Severe alcohol use disorder
Alcoholic hepatitis, mild
Lactic acidosis secondary to alcohol improved with IV fluids.
MSAS with lorazepam.
Phenobarbital.
Given breakthrough agitation required transfer to ICU with initiation of Precedex on 08/18. Improved and weaned off Precedex by
Monitor closely
Continue thiamine
MSA elevated
Resolved lactic acidosis
Alcoholic hepatitis.
Monitor LFTs periodically.
Clinically no evidence of cirrhosis
Ultrasound of the abdomen without ascites
Ammonia level normal.
Diet has been advanced.
Noted low-grade fever.
Not offering specific complaints to pinpoint the source.
Chest x-ray with no evidence of acute abnormalities/pneumonia
Urinalysis unremarkable
Blood cultures negative
COVID-19 positive
Tylenol.
Monitor closely for antibiotic
Bilateral frontal subdural hematoma/old hygroma.
Repeated CT scan with no evidence of expansion.
Neurosurgery input appreciated.
Essential hypertension
Continue metoprolol
Hold HCTZ
Iron Deficiency Anemia
�- Stable.� Hgb is improved from prior.
�- Continue iron supplementation.
�- Follow for any changes.
�- GI evaluations done 04/2023 were unremarkable.
Anxiety / Depression
�- Continue sertraline.
CODE STATUS DNR
Anticipated Discharge: Within 24 hours
Subjective/Interval History
-
Date of Service: August 25, 2023
Objective Data
-
Labs:
Laboratory Results
08/25/23
06:29
WBC 3.0 L
Hgb 9.5 L
Hct 28.2 L
Plt Count 114 L
Sodium 131 L
Potassium 3.8
Chloride 102
Carbon Dioxide 23
BUN 10
Creatinine 0.9
Glucose 80
Calcium 8.2 L
Vital Signs:
Vital Signs
Temp Pulse Resp BP Pulse Ox
100.6 F H 116 19 113/68 94
08/25/23 07:24 08/25/23 07:24 08/25/23 07:24 08/25/23 07:24 08/25/23 07:24
I&O
08/24/23 08/25/23 08/26/23
06:59 06:59 06:59
Intake Total 2280 / 2280 600 / 600
Output Total 3050 / 3050 1335 / 1335
Balance -770 / -770 -735 / -735
Physical Exam
-
General: Well Developed and No Apparent Distress
HEENT: Normocephalic, Atraumatic and Moist Mucous Membranes
Respiratory: Clear to Auscultation
Cardiac: Regular Rhythm and S1/S2; Negative Murmur, Rub or Gallop
GI: Soft, Nontender, Nondistended and Normal Bowel Sounds; Negative Organomegaly
Rectal: Deferred by Provider
Musculoskeletal: No Clubbing, No Cyanosis and No Edema
Skin: Negative Rash
Neuro: Nonfocal/Grossly Intact
--- NOTE | 2023-08-25 13:38 | CM ---
Patient has been accepted at [facility] and patient's daughter was agreeable to [facility] but patient's daughter also wanted a referral sent to [facility], referral sent to [facility] and will await determination from admissions
at [facility].
Plan; Skilled placement.
[2023-08-25 14:01] LABS: COVID-19 Antigen Positive (Negative)
[2023-08-25 15:39] VITALS: BP 135/75
[2023-08-25 19:16] VITALS: BP 116/85
[2023-08-25] MEDS: MAGNESIUM OXIDE PO ×2 (20:25→20:48)
[2023-08-25] MEDS: ZYPREXA 2.5 MG PO (20:26)
[2023-08-25] MEDS: PAXLOVID 2X150 MG-100 MG DOSE PACK 1 DOSE PO (20:34)
[2023-08-25] MEDS: MOTRIN 400 MG PO (22:38)
[2023-08-25 23:10] VITALS: BP 120/99
[2023-08-25] MEDS: PEPCID PO (23:35)
[2023-08-26 03:35] VITALS: BP 128/98
[2023-08-26 07:30] VITALS: BP 121/60
[2023-08-26] MEDS: HEPARIN 5000 UNITS SC ×2 (09:49→19:50)
[2023-08-26] MEDS: PROTONIX 40 MG PO (09:49)
[2023-08-26] MEDS: FOLVITE 1 MG PO (09:49)
[2023-08-26] MEDS: MAGNESIUM OXIDE 500 MG PO ×2 (09:49→19:50)
[2023-08-26] MEDS: NEUTRA-PHOS POWDER PACKET 500 MG PO ×2 (09:49→19:50)
[2023-08-26] MEDS: VITAMIN B1 100 MG PO ×2 (09:49→19:50)
[2023-08-26] MEDS: TOPROL XL 12.5 MG PO (09:49)
[2023-08-26] MEDS: PAXLOVID 2X150 MG-100 MG DOSE PACK 1 DOSE PO ×2 (09:50→22:10)
[2023-08-26 10:30] VITALS: BP 152/72
--- NOTE | 2023-08-26 15:21 | PTCARENOTE ---
Notified provider that the patient's temp 102.6
[2023-08-26 15:30] VITALS: BP 94/63
[2023-08-26] MEDS: TYLENOL 650 MG PO ×2 (15:36→22:15)
--- NOTE | 2023-08-26 16:06 | W.PN.HOSP.TC ---
Today's Communication/Plan
-
Supportive care per
Paxlovid.
Check stool for C. difficile
Physical therapy assessment
Assessment / Plan
Assessment / Plan
Impression:
Altered mental status secondary to delirium tremens
Falls at home
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
Severe alcohol use disorder repeat
Alcoholic hepatitis
Lactic acidosis
Hyponatremia
Hypokalemia
Conditions prior to admission:
Essential hypertension
Chronic iron deficiency anemia
Anxiety/depression.
Plan:
Altered mental status secondary to DT/TME.
Severe alcohol use disorder
Alcoholic hepatitis, mild
Lactic acidosis secondary to alcohol improved with IV fluids.
MSAS with lorazepam.
Phenobarbital.
Given breakthrough agitation required transfer to ICU with initiation of Precedex on 08/18. Improved and weaned off Precedex by
Monitor closely
Continue thiamine
MSA elevated
Resolved lactic acidosis
Alcoholic hepatitis.
Monitor LFTs periodically.
Clinically no evidence of cirrhosis
Ultrasound of the abdomen without ascites
Ammonia level normal.
Diet has been advanced.
Noted low-grade fever.
Not offering specific complaints to pinpoint the source.
Chest x-ray with no evidence of acute abnormalities/pneumonia
Urinalysis unremarkable
Blood cultures negative
COVID-19 positive
Stable respiratory status.
Initiated on Paxlovid on 08/25.
Diarrhea.
Check stool for C. difficile
Bilateral frontal subdural hematoma/old hygroma.
Repeated CT scan with no evidence of expansion.
Neurosurgery input appreciated.
Essential hypertension
Continue metoprolol
Hold HCTZ
Iron Deficiency Anemia
�- Stable.� Hgb is improved from prior.
�- Continue iron supplementation.
�- Follow for any changes.
�- GI evaluations done 04/2023 were unremarkable.
Anxiety / Depression
�- Continue sertraline.
CODE STATUS DNR
Anticipated Discharge: 24 - 48 hours
Subjective/Interval History
-
Date of Service: August 26, 2023
Objective Data
-
Vital Signs:
Vital Signs
Temp Pulse Resp BP Pulse Ox
102.6 F H 103 18 94/63 96
08/26/23 15:30 08/26/23 15:30 08/26/23 15:30 08/26/23 15:30 08/26/23 15:30
I&O
08/25/23 08/26/23 08/27/23
06:59 06:59 06:59
Intake Total 600 / 600 240 / 240
Output Total 1335 / 1335 850 / 850
Balance -735 / -735 -610 / -610
Physical Exam
-
General: Well Developed and No Apparent Distress
HEENT: Normocephalic, Atraumatic and Moist Mucous Membranes
Respiratory: Clear to Auscultation
Cardiac: Regular Rhythm and S1/S2; Negative Murmur, Rub or Gallop
GI: Soft, Nontender, Nondistended and Normal Bowel Sounds; Negative Organomegaly
Rectal: Deferred by Provider
Musculoskeletal: No Clubbing, No Cyanosis and No Edema
Skin: Negative Rash
Neuro: Nonfocal/Grossly Intact
--- NOTE | 2023-08-26 16:11 | CM ---
etoh use disorder,covid + now,patient with high fever last night,low grade fever today.ivf,iv ativan, has diarrhea.patient has been accepted at [facility].declined by miki watson.
plan discharge to [facility] when stable for discharge.
[2023-08-26 17:29] VITALS: BP 99/66
--- NOTE | 2023-08-26 18:43 | PTCARENOTE ---
Patient had x5 BMs today, aware. Cdiff sent.
[2023-08-26 19:00] VITALS: BP 167/89
[2023-08-26] MEDS: NSS 250 IV (19:16)
[2023-08-26] MEDS: NSS 1000 IV (19:50)
[2023-08-26] MEDS: PEPCID 40 MG PO (22:11)
[2023-08-26] MEDS: ZYPREXA 2.5 MG PO (22:11)
[2023-08-27] VITALS (8 sets, daily range): BP systolic 117–159; BP diastolic 58–84; BMI 20.3
[2023-08-27] MEDS: NSS 1000 IV ×2 (03:08→14:53)
[2023-08-27] MEDS: VITAMIN B1 100 MG PO (08:39)
[2023-08-27] MEDS: NEUTRA-PHOS POWDER PACKET 500 MG PO (08:39)
[2023-08-27] MEDS: MAGNESIUM OXIDE 500 MG PO (08:39)
[2023-08-27] MEDS: PROTONIX 40 MG PO (08:40)
[2023-08-27] MEDS: FOLVITE 1 MG PO (08:40)
[2023-08-27] MEDS: HEPARIN 5000 UNITS SC (08:41)
[2023-08-27] MEDS: TOPROL XL 12.5 MG PO (08:52)
[2023-08-27] MEDS: PAXLOVID 2X150 MG-100 MG DOSE PACK 1 DOSE PO (09:03)
[2023-08-27] MEDS: COMPAZINE 5 MG IV (09:23)
[2023-08-27] MEDS: STERILE WATER FOR INJECTION 2.10000000000000009 ML IM (09:31)
[2023-08-27] MEDS: ZYPREXA 10 MG IM (09:31)
--- NOTE | 2023-08-27 14:22 | W.PN.HOSP.TC ---
Addendum entered and electronically signed by Alfred Gross MD 08/27/23 17:18:
Patient seen and examined
Discussed with resident
Discussed with RN
Impression/plan:
Toxic metabolic encephalopathy
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
Overall mental status improved while with completion of phenobarbital taper.
Has been off MSAS protocol for few days with lorazepam used only as as needed for mostly anxiety.
COVID-19.
No respiratory symptoms
Acute viral syndrome likely contributing to failure to thrive and overall low oral intake.
Initiated on Paxlovid.
Noted choking while oral intake
Speech and swallow evaluation ordered.
Loose stools.
If persistent check stool for C. difficile.
Continue supportive care with overall plan to transition to residential facility
Original Note:
Today's Communication/Plan
-
C difficile pending
Supportive Care
Speech Eval
Assessment / Plan
Assessment / Plan
Impression:
Altered mental status secondary to delirium tremens
Falls at home
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
Severe alcohol use disorder repeat
Alcoholic hepatitis
Lactic acidosis
Hyponatremia
Hypokalemia
Conditions prior to admission:
Essential hypertension
Chronic iron deficiency anemia
Anxiety/depression.
Plan:
Altered mental status secondary to DT/TME.
Severe alcohol use disorder
Alcoholic hepatitis, mild
Lactic acidosis secondary to alcohol improved with IV fluids.
MSAS with lorazepam.
Phenobarbital.
Given breakthrough agitation required transfer to ICU with initiation of Precedex on 08/18. Improved and weaned off Precedex by
Monitor closely
Continue thiamine
MSA elevated
Resolved lactic acidosis
Alcoholic hepatitis.
Monitor LFTs periodically.
Clinically no evidence of cirrhosis
Ultrasound of the abdomen without ascites
Ammonia level normal.
Diet has been advanced.
Noted low-grade fever.
Not offering specific complaints to pinpoint the source.
Chest x-ray with no evidence of acute abnormalities/pneumonia
Urinalysis unremarkable
Blood cultures negative
COVID-19 positive
Stable respiratory status.
Initiated on Paxlovid on 08/25.
Diarrhea.
Check stool for C. difficile
Bilateral frontal subdural hematoma/old hygroma.
Repeated CT scan with no evidence of expansion.
Neurosurgery input appreciated.
Essential hypertension
Continue metoprolol
Hold HCTZ
Iron Deficiency Anemia
�- Stable.� Hgb is improved from prior.
�- Continue iron supplementation.
�- Follow for any changes.
�- GI evaluations done 04/2023 were unremarkable.
Anxiety / Depression
�- Continue sertraline.
CODE STATUS DNR
Anticipated Discharge: 24 - 48 hours
Subjective/Interval History
-
Date of Service: August 27, 2023
Objective Data
-
Vital Signs:
Vital Signs
Temp Pulse Resp BP Pulse Ox
98.7 F 124 20 139/78 87
08/27/23 11:18 08/27/23 11:18 08/27/23 11:18 08/27/23 11:18 08/27/23 11:18
I&O
08/26/23 08/27/23 08/28/23
06:59 06:59 06:59
Intake Total 240 / 240 1450 / 1450
Output Total 850 / 850
Balance -610 / -610 1450 / 1450
Physical Exam
-
General: Well Developed and No Apparent Distress
HEENT: Normocephalic, Atraumatic and Moist Mucous Membranes
Respiratory: Clear to Auscultation
Cardiac: Regular Rhythm and S1/S2; Negative Murmur, Rub or Gallop
GI: Soft, Nontender, Nondistended and Normal Bowel Sounds; Negative Organomegaly
Rectal: Deferred by Provider
Musculoskeletal: No Clubbing, No Cyanosis and No Edema
Skin: Negative Rash
Neuro: Nonfocal/Grossly Intact
[2023-08-27] MEDS: ATIVAN 1 MG IV ×2 (14:52→23:51)
[2023-08-27] MEDS: NSS (PRESERVATIVE FREE) 0.5 ML IV ×2 (14:53→23:51)
--- NOTE | 2023-08-27 16:43 | PTCARENOTE ---
pt is refusing orthostatic vitals, verbally yelling at staff and telling staff to 'f off', pt is continuously getting out of bed even with RN giving 0.5 of Ativan.
[2023-08-27] MEDS: PAXLOVID 2X150 MG-100 MG DOSE PACK PO ×2 (22:40→22:41)
[2023-08-27] MEDS: HEPARIN SC ×2 (22:40)
[2023-08-27] MEDS: VITAMIN B1 PO ×2 (22:41→22:42)
[2023-08-27] MEDS: ZYPREXA PO ×2 (22:41→22:48)
[2023-08-27] MEDS: PEPCID PO ×2 (22:41→22:48)
[2023-08-27] MEDS: MAGNESIUM OXIDE PO ×2 (22:41→22:42)
[2023-08-27] MEDS: NEUTRA-PHOS POWDER PACKET PO ×2 (22:42)
[2023-08-27] MEDS: FLUSH (NSS) 1 FLUSH IV (23:54)
[2023-08-28] MEDS: ProAIR HFA INHALER 2 PUFF INH (00:05)
[2023-08-28] MEDS: NSS 1000 IV ×2 (01:53→13:58)
[2023-08-28 03:55] VITALS: BP 167/97
--- NOTE | 2023-08-28 04:40 | PTCARENOTE ---
Pt coughing with intake of small amount of applesauce with and without meds at 90 degree angle. Attempted to suction secretions, pt pushed suction away with hand. Coughing encouraged to clear secretions. Pt spit up crushed meds and clear saliva. Pt
pulse ox 99% on room air. VS: HR 84, BP 159/82, Temp 98.1, and Resp rate 28. Lungs inspiratory wheezing and diminished throughout and rales heard in upper lobes. Pt anxious and refused medications. Notified BROOKS Dale. Pt NPO at this time.
New orders placed. See MAR. Plan of care ongoing.
--- NOTE | 2023-08-28 05:28 | W.PN.UPDATE ---
Update Note
Progress Note Update
RN notified RADIOLOGY RN, patient anxious and noticed wheezing and rales throughout the lungs, RR 28 98% RA, Afebrile, 159/82. Albuterol HFA and Ativan 1 mg IV given once with relief for four hours. Nursing had patient on NPO due to possible aspiration of
the medications. need to be evaluated by the speech. will make patient NPO. Patient seen and evaluated in AM. Patient is restless and gets agitated when this RADIOLOGY RN and RN touch the patient. Lungs coarse, notes expiatory wheeze, addressed he is having
sorethroat. Will change to IV remdesviir as patient not swallowing any medication, Discussed with pharmacist. Will also give him one dose of Ativan 0.5mg , IV Pepcid and sore throat spray. Patient is afebrile. Stable VS. Denies chest pain or
Shortness of breath, Confusion baseline.
[2023-08-28 06:00] VITALS: BMI 19.0
[2023-08-28] MEDS: PEPCID 20 MG IV ×2 (06:29→22:16)
[2023-08-28] MEDS: ATIVAN 0.5 MG IV (06:30)
[2023-08-28] MEDS: NSS (PRESERVATIVE FREE) 0.25 ML IV (06:33)
[2023-08-28 06:46] LABS: Blood Urea Nitrogen 11 mg/dl (9-20); Calcium 8.2 mg/dl (8.4-10.2); Carbon Dioxide 21 mmol/L (22-30); Chloride 109 mmol/L (98-107); Estimated Creatinine Clearance 104 ml/min; Glucose 71 mg/dl (70-99); Potassium 3.7 mmol/L (3.5-5.1); Sodium 138 mmol/L (135-145); eGFR > 60.00
[2023-08-28 07:00] VITALS: BP 152/110
[2023-08-28] MEDS: ZYPREXA 10 MG IM ×2 (07:51→22:22)
[2023-08-28] MEDS: FOLVITE PO (08:38)
[2023-08-28] MEDS: TOPROL XL PO (08:39)
[2023-08-28] MEDS: NEUTRA-PHOS POWDER PACKET PO ×2 (08:39→22:25)
[2023-08-28] MEDS: HEPARIN 5000 UNITS SC ×2 (10:13→22:08)
[2023-08-28] MEDS: APRESOLINE 5 MG IV (10:14)
[2023-08-28 11:00] VITALS: BP 124/79
--- NOTE | 2023-08-28 11:07 | W.PN.HOSP.TC ---
Today's Communication/Plan
-
Will discontinue remdesivir that was started overnight by recreation engineer as does not qualify
Will place on IV steroids for his wheezing congestion although may aggravate delirium
Respiratory toilet as needed with secretions management
Speech therapy to evaluate
Change diet medications on IV form when possible
Assessment / Plan
Assessment / Plan
Impression:
Altered mental status secondary to delirium tremens
Falls at home
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
Severe alcohol use disorder repeat
Alcoholic hepatitis
Lactic acidosis
Hyponatremia
Hypokalemia
Conditions prior to admission:
Essential hypertension
Chronic iron deficiency anemia
Anxiety/depression.
Plan:
Altered mental status secondary to DT/TME./Remains with underlying delirium/agitation now refusing medications orally/
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
Alcoholic hepatitis, mild
Lactic acidosis secondary to alcohol improved with IV fluids.
MSAS with lorazepam.
Phenobarbital.
Given breakthrough agitation required transfer to ICU with initiation of Precedex on 08/18. Improved and weaned off Precedex by
Monitor closely
Continue thiamine/Warnicke's?
MSA elevated
Resolved lactic acidosis
Alcoholic hepatitis.
Monitor LFTs periodically.
Clinically no evidence of cirrhosis
Ultrasound of the abdomen without ascites
Ammonia level normal.
Diet has been advanced.
Noted low-grade fever. Remains febrile up to 101
Not offering specific complaints to pinpoint the source.
Chest x-ray with no evidence of acute abnormalities/pneumonia
Urinalysis unremarkable
Blood cultures negative
COVID-19 positive
Stable respiratory status.
Initiated on Paxlovid on 08/25. Unable to tolerate any oral medications including Paxlovid
-Not a candidate for remdesivir as the patient is not desatting and not hypoxic
-May benefit from Decadron IV although may aggravate his agitation and delirium.
Diarrhea.
Check stool for C. difficile
Bilateral frontal subdural hematoma/old hygroma.
Repeated CT scan with no evidence of expansion.
Neurosurgery input appreciated.
Essential hypertension
Continue metoprolol
Hold HCTZ
Iron Deficiency Anemia
�- Stable.� Hgb is improved from prior.
�- Continue iron supplementation.
�- Follow for any changes.
�- GI evaluations done 04/2023 were unremarkable.
Anxiety / Depression
�- Continue sertraline.
CODE STATUS DNR
Anticipated Discharge: Within 24 hours
Subjective/Interval History
-
Date of Service: August 28, 2023
Noted overnight to have increasing shortness of breath wheezing congestion refusing to take oral medications and complaining of sore throat remains delirious was given respiratory treatments throat spray remaining restless and agitated with any
stimulation from staff for care.
Objective Data
-
Labs:
Laboratory Results
08/28/23
06:04
Sodium 138
Potassium 3.7
Chloride 109 H
Carbon Dioxide 21 L
BUN 11
Creatinine 0.5 L
Glucose 71
Calcium 8.2 L
Vital Signs:
Vital Signs
Temp Pulse Resp BP Pulse Ox
99.0 F 67 18 151/110 96
08/28/23 09:24 08/28/23 07:00 08/28/23 07:00 08/28/23 10:14 08/28/23 07:00
I&O
08/27/23 08/28/23 08/29/23
06:59 06:59 07:59
Intake Total 1450 / 1450 1200 / 1200
Balance 1450 / 1450 1200 / 1200
Review of Systems
-
Unable to obtain full review of systems at this time due to: Dementia
History Source: Patient
Constitutional: Reports Fever (This morning up to 101.2)
Respiratory: Reports Cough, Trouble Breathing and Wheezing
Abdomen/GI: Reports No Symptoms
Physical Exam
-
General: Appears Chronically Ill
HEENT: Normocephalic and Other (Although relating difficulty breathing and shortness of breath pulse ox has remained stable without need for oxygen); Negative Oxygen
Cardiac: Regular Rhythm and Tachycardic
GI: Soft and Nontender
Psych: Confused, Agitated, Anxious and Apparent Dementia
Data Reviewed
-
Total Time Spent with Patient (in minutes): 56
Labs: Labs Reviewed by me
--- NOTE | 2023-08-28 11:32 | PTOTSP ---
Clinical Swallow Evaluation
Limited CSE this date 2/2 patient with altered mentation and increased difficulty following commands. Demonstrated coughing with puree, and refused further trials. Recommend maintaining NPO status at this time with MEDICAL OFFICE ADMINISTRATOR service to continue to follow
and advance diet as able.
Recommendations:
1. NPO
2. May attempt essential meds crushed in puree
3. Not a candidate for ARHP 2/2 increased s/s of aspiration/penetration with puree
4. Oral care 3-4x a day as tolerated
5. MEDICAL OFFICE ADMINISTRATOR service to follow
[2023-08-28] MEDS: DECADRON 6 MG IV (13:59)
[2023-08-28] MEDS: LOPRESSOR 5 MG IV ×2 (14:00→17:17)
[2023-08-28 15:00] VITALS: BP 154/95
[2023-08-28 19:52] VITALS: BP 161/88
[2023-08-28] MEDS: ZYPREXA PO (22:16)
[2023-08-28] MEDS: STERILE WATER FOR INJECTION 2.10000000000000009 ML IM (22:22)
[2023-08-28] MEDS: NSS (PRESERVATIVE FREE) IV (22:25)
[2023-08-28 23:59] VITALS: BP 163/106
[2023-08-29] VITALS (7 sets, daily range): BP systolic 105–169; BP diastolic 59–98; BMI 18.7
[2023-08-29] MEDS: LOPRESSOR 5 MG IV ×5 (00:59→23:39)
[2023-08-29] MEDS: NSS 1000 IV ×2 (04:44→14:17)
[2023-08-29] MEDS: STERILE WATER FOR INJECTION 2.10000000000000009 ML IM ×2 (05:01→18:08)
[2023-08-29] MEDS: ZYPREXA 10 MG IM ×2 (05:01→18:08)
[2023-08-29] MEDS: DESENEX/MITRAZOL/ZEASORB TOPICAL (07:10)
[2023-08-29] MEDS: NEUTRA-PHOS POWDER PACKET PO ×2 (08:33→21:05)
[2023-08-29] MEDS: FOLVITE PO (08:33)
[2023-08-29] MEDS: NSS (PRESERVATIVE FREE) 8 ML IV ×2 (08:34→21:08)
[2023-08-29] MEDS: HEPARIN 5000 UNITS SC ×2 (08:34→21:02)
[2023-08-29] MEDS: PEPCID 20 MG IV ×2 (08:35→21:06)
--- NOTE | 2023-08-29 09:35 | W.PN.HOSP.TC ---
Today's Communication/Plan
-
For further speech evaluation today continues to have respiratory congestion and apparent high risk for aspiration
Medications what could be changed were changed to IV rest were held or discontinued
Goals of care discussion suggested early next week pending further speech therapy evaluation and swallowing dysfunction and whether he can still protect his airway which presently appears cannot
Taken off Paxlovid and placed on IV steroid not a candidate for remdesivir
Assessment / Plan
Assessment / Plan
Impression:
Altered mental status secondary to delirium tremens
Falls at home
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
Severe alcohol use disorder repeat
Alcoholic hepatitis
Lactic acidosis
Hyponatremia
Hypokalemia
Conditions prior to admission:
Essential hypertension
Chronic iron deficiency anemia
Anxiety/depression.
Plan:
Altered mental status secondary to DT/TME./Remains with underlying delirium/agitation now refusing medications orally/
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
Alcoholic hepatitis, mild
Lactic acidosis secondary to alcohol improved with IV fluids.
MSAS with lorazepam.
Phenobarbital.
Given breakthrough agitation required transfer to ICU with initiation of Precedex on 08/18. Improved and weaned off Precedex by
Monitor closely
Continue thiamine/Warnicke's?
MSA elevated
Resolved lactic acidosis
Alcoholic hepatitis.
Monitor LFTs periodically.
Clinically no evidence of cirrhosis
Ultrasound of the abdomen without ascites
Ammonia level normal.
Diet has been advanced. Then started refusing anything orally and evaluated by speech/coughing with pur�ed and refused further trials/speech therapy recommended complete n.p.o.
Noted low-grade fever. Remains febrile up to 101
Not offering specific complaints to pinpoint the source.
Chest x-ray with no evidence of acute abnormalities/pneumonia
Urinalysis unremarkable
Blood cultures negative
COVID-19 positive
Stable respiratory status.
Initiated on Paxlovid on 08/25. Unable to tolerate any oral medications including Paxlovid
-Not a candidate for remdesivir as the patient is not desatting and not hypoxic
-May benefit from Decadron IV although may aggravate his agitation and delirium.
Diarrhea.
Check stool for C. difficile
Bilateral frontal subdural hematoma/old hygroma.
Repeated CT scan with no evidence of expansion.
Neurosurgery input appreciated.
Essential hypertension
Continue metoprolol
Hold HCTZ
Iron Deficiency Anemia
�- Stable.� Hgb is improved from prior.
�- Continue iron supplementation.
�- Follow for any changes.
�- GI evaluations done 04/2023 were unremarkable.
Anxiety / Depression
�- Continue sertraline.
CODE STATUS DNR
Anticipated Discharge: 24 - 48 hours
Subjective/Interval History
-
Date of Service: August 29, 2023
Remains congested not interactive oxygen requirement not coherent
Objective Data
-
Vital Signs:
Vital Signs
Temp Pulse Resp BP Pulse Ox
98.0 F 105 24 162/84 99
08/29/23 07:28 08/29/23 07:28 08/29/23 07:28 08/29/23 07:28 08/29/23 07:28
I&O
08/28/23 08/29/23 08/30/23
05:59 06:59 06:59
Intake Total
Balance
Review of Systems
-
Unable to obtain full review of systems at this time due to: Patient Non-verbal
History Source: Patient
Respiratory: Reports Trouble Breathing and Wheezing
Psych: Reports Sad
Physical Exam
-
General: Appears Chronically Ill and Cachectic
HEENT: Oxygen
Respiratory: Wheezes, Rhonchi, Crackles and Decreased Breath Sounds
Cardiac: Irregular Rhythm
GI: Soft
Psych: Confused and Apparent Dementia
Data Reviewed
-
Total Time Spent with Patient (in minutes): 45
Labs: Labs Reviewed by me (Reviewed)
[2023-08-29] MEDS: DECADRON 6 MG IV (11:05)
[2023-08-29] MEDS: TYLENOL/FEVERALL 325 MG RECTAL (11:41)
[2023-08-29] MEDS: DESENEX/MITRAZOL/ZEASORB 1 APPLIC TOPICAL (17:08)
[2023-08-29] MEDS: ZYPREXA PO (21:02)
[2023-08-30] VITALS (7 sets, daily range): BP systolic 99–156; BP diastolic 77–88; BMI 19.0
[2023-08-30] MEDS: NSS 1000 IV ×2 (02:15→09:04)
[2023-08-30] MEDS: STERILE WATER FOR INJECTION 2.10000000000000009 ML IM (04:34)
[2023-08-30] MEDS: ZYPREXA 10 MG IM (04:35)
[2023-08-30] MEDS: LOPRESSOR 5 MG IV ×4 (06:02→23:55)
[2023-08-30] MEDS: DESENEX/MITRAZOL/ZEASORB 1 APPLIC TOPICAL ×2 (06:02→17:16)
[2023-08-30 08:48] LABS: Hematocrit 31.6 % (39.0-52.0); Hemoglobin 10.6 g/dL (13.0-18.0); Mean Corp Hgb Conc. 33.5 g/dL (33.0-37.0); Mean Corpuscular Hgb 31.4 pg (27.0-31.0); Mean Corpuscular Volume 93.5 fL (80.0-94.0); Mean Platelet Volume 11.1 fL (7.4-10.4); Platelet Count 184 10^3/uL (130-400); Red Blood Cell Count 3.38 10^6/uL (4.70-6.10); Red Cell Dist. Width 15.1 % (11.5-14.5); White Blood Cell Count 11.4 10^3/uL (4.8-10.8)
--- NOTE | 2023-08-30 08:50 | PTCARENOTE ---
08/29- Patient seen in room nonverbal but makes incomprehensible sounds; 4 extremities contracted and tremoring; face flushed. +pulsesX4; Lungs coarse, shallow breathing, T=100.2; POX=97% on RA; ZR=174; XU=085/88; Zxiubhtrz=836. Restarted Neuro
checks; Notified Physician.
[2023-08-30] MEDS: NSS IV (08:53)
[2023-08-30] MEDS: FOLVITE PO (08:54)
[2023-08-30] MEDS: NEUTRA-PHOS POWDER PACKET PO (08:54)
[2023-08-30] MEDS: HEPARIN 5000 UNITS SC ×2 (08:56→23:47)
[2023-08-30] MEDS: PEPCID 20 MG IV ×2 (08:58→23:51)
[2023-08-30] MEDS: NSS (PRESERVATIVE FREE) 8 ML IV ×2 (08:58→23:51)
[2023-08-30 09:14] LABS: Blood Urea Nitrogen 10 mg/dl (9-20); Calcium 8.3 mg/dl (8.4-10.2); Carbon Dioxide 19 mmol/L (22-30); Chloride 117 mmol/L (98-107); Estimated Creatinine Clearance 84 ml/min; Glucose 107 mg/dl (70-99); Potassium 3.4 mmol/L (3.5-5.1); Sodium 144 mmol/L (135-145); eGFR > 60.00
[2023-08-30 09:19] LABS: Glucose - Point of Care 102 mg/dl (70-99)
[2023-08-30] MEDS: D5/0.45%NSS with KCL 20 MEQ 1000 IV (11:30)
[2023-08-30] MEDS: DECADRON 6 MG IV (11:30)
--- NOTE | 2023-08-30 11:40 | PTCARENOTE ---
Addendum entered by Carina Kelly RN 08/30/23 12:04:
08/29- T=100.5; DX=198; BP=92/70; Face is less flushed; Speech is garbled but semi-formed now; AAOX2. Continue to observe.
Original Note:
08/29- Patient's T=101; VM=381; BP=99/79; no change in mental status since last assessment, but tremors are mildly decreased. Face still flushed. Administered Tylenol Suppository as ordered; Metoprolol IV administered as ordered; New IV fluids
administered as ordered as per Physician. Will continue to monitor. Recheck BP in 20 minutes.
--- NOTE | 2023-08-30 12:30 | PTCARENOTE ---
08/29- Patient has garbled speech, is intermittently confused, but is AAOX3 now; restless. T=99.2; VC=377; VG=151/75; Skin=pale but not flushed. Notified Physician of patient's improvement; Speech to return for eval.
--- NOTE | 2023-08-30 12:42 | CM ---
Patient currently NPO.
Speech unable to eval today due to agitation.
CM will continue to follow for d/c needs.
Plan: skilled rehab
--- NOTE | 2023-08-30 14:23 | PTOTSP ---
Dysphagia Therapy
Patient is at an elevated risk for fluctuations in dysphagia/aspiration risk given AMS. No overt signs of dysphagia/aspiration observed with limited trials of puree and thin liquids this date. Consider cautious diet as outlined below.
Recommend:
1. CAUTIOUS IDDSI Level 4 (Puree), IDDSI Level 0 (Thin Liquids)
2. Medications - crushed in puree if medically cleared
3. 1:1 supervision and assistance as needed
4. Strategies: small single sips/bites, slow rate
5. Oral care 3-5x daily
6. Will continue to follow for dysphagia tx at the acute care level to determine if/when diet advancement appropriate.
--- NOTE | 2023-08-30 17:10 | W.PN.HOSP.TC ---
Today's Communication/Plan
-
Altered mental status likely multifactorial
Hold further Zyprexa give only if severely agitated.
Avoid oversedation.
IV fluids monitoring oral intake
Aspiration precautions.
Continue dexamethasone with caution for worsening agitation.
Ongoing goals of care discussions
Assessment / Plan
Assessment / Plan
Impression:
Altered mental status secondary to delirium tremens
Falls at home
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
Severe alcohol use disorder repeat
Alcoholic hepatitis
Lactic acidosis
Hyponatremia
Hypokalemia
Conditions prior to admission:
Essential hypertension
Chronic iron deficiency anemia
Anxiety/depression.
Plan:
Altered mental status secondary to DT/TME.
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
Alcoholic hepatitis, mild
Lactic acidosis secondary to alcohol improved with IV fluids.
Completed course of phenobarbital.
MSAS stopped given resolved DT.
Mental status fluctuant and likely secondary to underlying dementia.
Avoid oversedation
Hold Zyprexa for now
Aspiration risk.
Speech and swallow evaluation.
Advance diet as recommended with aspiration precaution
Alcoholic hepatitis.
Monitor LFTs periodically.
Clinically no evidence of cirrhosis
Ultrasound of the abdomen without ascites
Ammonia level normal.
Diet has been advanced. Then started refusing anything orally and evaluated by speech/coughing with pur�ed and refused further trials/speech therapy recommended complete n.p.o.
Noted low-grade fever. Remains febrile up to 101
Not offering specific complaints to pinpoint the source.
Chest x-ray with no evidence of acute abnormalities/pneumonia
Urinalysis unremarkable
Blood cultures negative
COVID-19 positive
Stable respiratory status.
Initiated on Paxlovid on 08/25. Unable to tolerate any oral medications including Paxlovid
-Not a candidate for remdesivir as the patient is not desatting and not hypoxic
-May benefit from Decadron IV although may aggravate his agitation and delirium.
Diarrhea.
Check stool for C. difficile
Bilateral frontal subdural hematoma/old hygroma.
Repeated CT scan with no evidence of expansion.
Neurosurgery input appreciated.
Essential hypertension
Continue metoprolol
Hold HCTZ
Iron Deficiency Anemia
�- Stable.� Hgb is improved from prior.
�- Continue iron supplementation.
�- Follow for any changes.
�- GI evaluations done 04/2023 were unremarkable.
Anxiety / Depression
�- Continue sertraline.
CODE STATUS DNR
Anticipated Discharge: 24 - 48 hours
Subjective/Interval History
-
Date of Service: August 30, 2023
Objective Data
-
Labs:
Laboratory Results
08/30/23
06:58
WBC 11.4 H
Hgb 10.6 L
Hct 31.6 L
Plt Count 184 D
Sodium 144
Potassium 3.4 L
Chloride 117 H
Carbon Dioxide 19 L
BUN 10
Creatinine 0.7
Glucose 107 H
Calcium 8.3 L
Vital Signs:
Vital Signs
Temp Pulse Resp BP Pulse Ox
97.8 F 104 20 145/87 97
08/30/23 15:23 08/30/23 15:23 08/30/23 15:23 08/30/23 15:23 08/30/23 15:23
I&O
08/29/23 08/30/23 08/31/23
06:59 06:59 06:59
Intake Total 1200 / 1200
Balance 1200 / 1200
Physical Exam
-
General: Well Developed and No Apparent Distress
HEENT: Normocephalic, Atraumatic and Moist Mucous Membranes
Respiratory: Clear to Auscultation
Cardiac: Regular Rhythm and S1/S2; Negative Murmur, Rub or Gallop
GI: Soft, Nontender, Nondistended and Normal Bowel Sounds; Negative Organomegaly
Rectal: Deferred by Provider
Musculoskeletal: No Clubbing, No Cyanosis and No Edema
Skin: Negative Rash
Neuro: Nonfocal/Grossly Intact
--- NOTE | 2023-08-30 18:34 | PTCARENOTE ---
08/29- Patient is increasingly more agitated, combative upon feeding and cleaning attempts; repeatedly attempts to get out of bed without supervision. Patient has weak unsteady gait, shuffles feet, weak knees that he cannot fully extend to a steady
posture. Patient is not redirectable; but was able to get him back in bed; still on MedSitter and Bed Alarm.
[2023-08-30] MEDS: NEUTRA-PHOS POWDER PACKET 500 MG PO (23:49)
[2023-08-30] MEDS: ZYPREXA 2.5 MG PO (23:55)
[2023-08-31] MEDS: D5/0.45%NSS with KCL 20 MEQ 1000 IV ×3 (00:09→14:38)
[2023-08-31 04:42] VITALS: BP 152/93
[2023-08-31 06:00] VITALS: BMI 18.8
[2023-08-31] MEDS: LOPRESSOR 5 MG IV ×4 (06:13→23:13)
[2023-08-31] MEDS: DESENEX/MITRAZOL/ZEASORB 1 APPLIC TOPICAL ×2 (06:13→16:38)
[2023-08-31] MEDS: NEUTRA-PHOS POWDER PACKET 500 MG PO ×2 (07:54→19:53)
[2023-08-31] MEDS: PEPCID 20 MG IV ×2 (07:54→19:54)
[2023-08-31] MEDS: NSS (PRESERVATIVE FREE) 8 ML IV ×2 (07:54→19:53)
[2023-08-31] MEDS: FOLVITE 1 MG PO (07:55)
[2023-08-31] MEDS: HEPARIN 5000 UNITS SC (07:55)
[2023-08-31 08:27] VITALS: BP 173/100
[2023-08-31 08:30] LABS: % Basophils 0.4 % (0-2); % Immature Granulocytes 0.6 % (0-0.5); % Lymphocytes 1.9 % (20.5-51.1); % Monocytes 4.9 % (1.7-9.3); % Neutrophils 92.2 % (42.2-75.2); Absolute Immature Granulocytes 0.1 10^3/uL (0-0.05); Absolute Lymphocytes 0.2 10^3/uL (1.2-3.4); Absolute Monocytes 0.5 10^3/uL (0.1-0.6); Absolute Neutrophils 9.2 10^3/uL (1.4-6.5); Hematocrit 28.9 % (39.0-52.0); Hemoglobin 9.7 g/dL (13.0-18.0); Mean Corp Hgb Conc. 33.6 g/dL (33.0-37.0); Mean Corpuscular Hgb 31.5 pg (27.0-31.0); Mean Corpuscular Volume 93.8 fL (80.0-94.0); Mean Platelet Volume 11.7 fL (7.4-10.4); Nucleated Red Blood Cells % 0 % (-); Platelet Count 149 10^3/uL (130-400); Red Blood Cell Count 3.08 10^6/uL (4.70-6.10); Red Cell Dist. Width 15.4 % (11.5-14.5)
[2023-08-31 09:08] LABS: Blood Urea Nitrogen 16 mg/dl (9-20); Carbon Dioxide 21 mmol/L (22-30); Chloride 118 mmol/L (98-107); Estimated Creatinine Clearance 64 ml/min; Glucose 115 mg/dl (70-99); Sodium 145 mmol/L (135-145); eGFR > 60.00
--- NOTE | 2023-08-31 10:42 | PTCARENOTE ---
Pt agitated this morning, refused mouthcare, did agree finally to allow us to perform mouth care and ADL's , Took a few sips of juice and vaseline appied to lips. Can be easily agitated with any care .
[2023-08-31 11:51] VITALS: BP 131/81
[2023-08-31] MEDS: DECADRON 6 MG IV (12:41)
[2023-08-31 15:20] VITALS: BP 126/80
[2023-08-31] MEDS: LIPITOR PO (16:39)
--- NOTE | 2023-08-31 17:32 | W.PN.HOSP.TC ---
Today's Communication/Plan
-
Respiratory status stable
Fluctuating mentation with unpredictable oral intake. Continue observe p.o. intake as well as maintenance IV fluids.
Replete electrolytes.
Continue Zyprexa at bedtime avoiding oversedation.
IV Decadron for another 24 to 48 hours.
Assessment / Plan
Assessment / Plan
Impression:
Altered mental status secondary to delirium tremens
Falls at home
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
Severe alcohol use disorder repeat
Alcoholic hepatitis
Lactic acidosis
Hyponatremia
Hypokalemia
Conditions prior to admission:
Essential hypertension
Chronic iron deficiency anemia
Anxiety/depression.
Plan:
Altered mental status secondary to DT/TME.
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
Alcoholic hepatitis, mild
Lactic acidosis secondary to alcohol improved with IV fluids.
Completed course of phenobarbital.
MSAS stopped given resolved DT.
Mental status fluctuant and likely secondary to underlying dementia.
Avoid oversedation
Hold Zyprexa for now
Aspiration risk.
Speech and swallow evaluation.
Advance diet as recommended with aspiration precaution
Alcoholic hepatitis.
Monitor LFTs periodically.
Clinically no evidence of cirrhosis
Ultrasound of the abdomen without ascites
Ammonia level normal.
Diet has been advanced. Then started refusing anything orally and evaluated by speech/coughing with pur�ed and refused further trials/speech therapy recommended complete n.p.o.
Noted low-grade fever. Remains febrile up to 101
Not offering specific complaints to pinpoint the source.
Chest x-ray with no evidence of acute abnormalities/pneumonia
Urinalysis unremarkable
Blood cultures negative
COVID-19 positive
Stable respiratory status.
Initiated on Paxlovid on 08/25. Unable to tolerate any oral medications including Paxlovid
-Not a candidate for remdesivir as the patient is not desatting and not hypoxic
-May benefit from Decadron IV although may aggravate his agitation and delirium.
Diarrhea.
Check stool for C. difficile
Bilateral frontal subdural hematoma/old hygroma.
Repeated CT scan with no evidence of expansion.
Neurosurgery input appreciated.
Essential hypertension
Continue metoprolol
Hold HCTZ
Iron Deficiency Anemia
�- Stable.� Hgb is improved from prior.
�- Continue iron supplementation.
�- Follow for any changes.
�- GI evaluations done 04/2023 were unremarkable.
Anxiety / Depression
�- Continue sertraline.
CODE STATUS DNR
Anticipated Discharge: 24 - 48 hours
Subjective/Interval History
-
Date of Service: August 31, 2023
Objective Data
-
Labs:
Laboratory Results
08/31/23
07:34
WBC 10.0
Hgb 9.7 L
Hct 28.9 L
Plt Count 149
Sodium 145
Potassium 3.0 L
Chloride 118 H
Carbon Dioxide 21 L
BUN 16
Creatinine 0.9
Glucose 115 H
Calcium 8.0 L
Vital Signs:
Vital Signs
Temp Pulse Resp BP Pulse Ox
98.2 F 111 18 126/80 96
08/31/23 15:20 08/31/23 15:20 08/31/23 15:20 08/31/23 15:20 08/31/23 15:20
I&O
08/30/23 08/31/23 09/01/23
06:59 06:59 06:59
Intake Total 2349 / 2350
Balance 235 / 2350
Physical Exam
-
General: Well Developed and No Apparent Distress
HEENT: Normocephalic, Atraumatic and Moist Mucous Membranes
Respiratory: Clear to Auscultation
Cardiac: Regular Rhythm and S1/S2; Negative Murmur, Rub or Gallop
GI: Soft, Nontender, Nondistended and Normal Bowel Sounds; Negative Organomegaly
Rectal: Deferred by Provider
Musculoskeletal: No Clubbing, No Cyanosis and No Edema
Skin: Negative Rash
Neuro: Awake, Alert and Nonfocal/Grossly Intact
[2023-08-31] MEDS: HEPARIN SC (20:16)
[2023-08-31 20:17] VITALS: BP 154/91
[2023-08-31] MEDS: ZYPREXA 2.5 MG PO (21:47)
[2023-08-31 23:52] VITALS: BP 152/86
[2023-09-01] VITALS (10 sets, daily range): BP systolic 122–176; BP diastolic 82–105; BMI 19.1
[2023-09-01] MEDS: TYLENOL 650 MG PO (00:20)
[2023-09-01] MEDS: D5/0.45%NSS with KCL 20 MEQ 1000 IV ×2 (03:01→12:22)
[2023-09-01] MEDS: LOPRESSOR 5 MG IV ×3 (05:00→17:48)
[2023-09-01] MEDS: DESENEX/MITRAZOL/ZEASORB 1 APPLIC TOPICAL ×2 (05:00→17:48)
[2023-09-01] MEDS: NEUTRA-PHOS POWDER PACKET 500 MG PO (07:50)
[2023-09-01] MEDS: HEPARIN 5000 UNITS SC ×2 (07:51→22:14)
[2023-09-01] MEDS: FOLVITE 1 MG PO (07:51)
[2023-09-01] MEDS: PEPCID 20 MG IV ×2 (07:52→22:15)
[2023-09-01] MEDS: NSS (PRESERVATIVE FREE) 8 ML IV ×2 (07:52→22:14)
[2023-09-01] MEDS: APRESOLINE 5 MG IV (07:55)
[2023-09-01 09:08] LABS: % Basophils 0.1 % (0-2); % Immature Granulocytes 0.8 % (0-0.5); % Lymphocytes 1.3 % (20.5-51.1); % Monocytes 2.7 % (1.7-9.3); % Neutrophils 95.1 % (42.2-75.2); Absolute Immature Granulocytes 0.1 10^3/uL (0-0.05); Absolute Lymphocytes 0.2 10^3/uL (1.2-3.4); Absolute Monocytes 0.4 10^3/uL (0.1-0.6); Absolute Neutrophils 13.9 10^3/uL (1.4-6.5); Hematocrit 31.7 % (39.0-52.0); Hemoglobin 10.6 g/dL (13.0-18.0); Mean Corp Hgb Conc. 33.4 g/dL (33.0-37.0); Mean Corpuscular Hgb 31.3 pg (27.0-31.0); Mean Corpuscular Volume 93.5 fL (80.0-94.0); Mean Platelet Volume 12.3 fL (7.4-10.4); Nucleated Red Blood Cells % 0 % (-); Platelet Count 125 10^3/uL (130-400); Red Blood Cell Count 3.39 10^6/uL (4.70-6.10); Red Cell Dist. Width 15.6 % (11.5-14.5); White Blood Cell Count 14.6 10^3/uL (4.8-10.8)
[2023-09-01 09:28] LABS: Blood Urea Nitrogen 26 mg/dl (9-20); Calcium 8.6 mg/dl (8.4-10.2); Carbon Dioxide 18 mmol/L (22-30); Chloride 114 mmol/L (98-107); Estimated Creatinine Clearance 53 ml/min; Glucose 115 mg/dl (70-99); Potassium 3.5 mmol/L (3.5-5.1); eGFR > 60.00
[2023-09-01 09:38] LABS: Sodium 144 mmol/L (135-145)
[2023-09-01] MEDS: TYLENOL/FEVERALL 325 MG RECTAL (10:53)
--- NOTE | 2023-09-01 11:03 | PTOTSP ---
SPEECH THERAPY SWALLOW FOLLOW-UP:
Chart reviewed. WBC 08/30 10.0 WNL. Discussed patient with ROSENDA Morelos and [facility]er who reported patient extremely agitated today, won't open his eyes; now febrile with 101.4 temperature. Patient has been refusing all p.o. from breakfast tray
per PCT. RN reported patient coughing on medications crushed in puree today. Will hold swallow therapy follow-up at this time due to patient agitation/refusal for p.o.. Given increased confusion/agitation and new onset fever, along with report of
coughing on medications, recommend patient to be temporary NPO with short-term alternate means for nutrition/medication/hydration. ST to re-assess tomorrow, provide education regarding aspiration risks/precautions, and provide diagnostic swallow
therapy as appropriate. Discussed with RN, PCT, and Dr. Gross via tiger text.
RECOMMEND:
1) temporary NPO with short-term alternate means for nutrition/medication/hydration
2) ST to re-assess tomorrow, provide education regarding aspiration risks/precautions, and provide diagnostic swallow therapy as appropriate
--- NOTE | 2023-09-01 14:54 | W.PN.HOSP.TC ---
Today's Communication/Plan
-
Mental status fluctuant with episodes of lethargy and agitation for
Remains aspiration risk
Maintain n.p.o. to date
IV fluids
Replete electrolytes
Ongoing goals of care discussion
Assessment / Plan
Assessment / Plan
Impression:
Altered mental status secondary to delirium tremens
Falls at home
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
Severe alcohol use disorder repeat
Alcoholic hepatitis
Lactic acidosis
Hyponatremia
Hypokalemia
Conditions prior to admission:
Essential hypertension
Chronic iron deficiency anemia
Anxiety/depression.
Plan:
Altered mental status secondary to DT/TME.
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
Alcoholic hepatitis, mild
Lactic acidosis secondary to alcohol improved with IV fluids.
Completed course of phenobarbital.
MSAS stopped given resolved DT.
Mental status fluctuant and likely secondary to underlying dementia.
Avoid oversedation
Hold Zyprexa for now
Aspiration risk.
Speech and swallow evaluation.
Advance diet as recommended with aspiration precaution
Alcoholic hepatitis.
Monitor LFTs periodically.
Clinically no evidence of cirrhosis
Ultrasound of the abdomen without ascites
Ammonia level normal.
Diet has been advanced. Then started refusing anything orally and evaluated by speech/coughing with pur�ed and refused further trials/speech therapy recommended complete n.p.o.
Noted low-grade fever. Remains febrile up to 101
Not offering specific complaints to pinpoint the source.
Chest x-ray with no evidence of acute abnormalities/pneumonia
Urinalysis unremarkable
Blood cultures negative
COVID-19 positive
Stable respiratory status.
Initiated on Paxlovid on 08/25. Unable to tolerate any oral medications including Paxlovid
-Not a candidate for remdesivir as the patient is not desatting and not hypoxic
-Initiated IV Decadron, discontinued on 08/31 given agitation and concern for steroid related delirium.
Bilateral frontal subdural hematoma/old hygroma.
Repeated CT scan with no evidence of expansion.
Neurosurgery input appreciated.
Essential hypertension
Continue metoprolol
Hold HCTZ
Iron Deficiency Anemia
�- Stable.� Hgb is improved from prior.
�- Continue iron supplementation.
�- Follow for any changes.
�- GI evaluations done 04/2023 were unremarkable.
Anxiety / Depression
�- Continue sertraline.
CODE STATUS DNR
Anticipated Discharge: > 48 hours
Subjective/Interval History
-
Date of Service: September 01, 2023
Objective Data
-
Labs:
Laboratory Results
09/01/23
08:30
WBC 14.6 H
Hgb 10.6 L
Hct 31.7 L
Plt Count 125 L
Sodium 144
Potassium 3.5
Chloride 114 H
Carbon Dioxide 18 L
BUN 26 H
Creatinine 1.1
Glucose 115 H
Calcium 8.6
Vital Signs:
Vital Signs
Temp Pulse Resp BP Pulse Ox
101.4 F H 118 20 122/84 98
09/01/23 11:00 09/01/23 11:00 09/01/23 11:00 09/01/23 11:00 09/01/23 11:00
I&O
08/31/23 09/01/23 09/02/23
06:59 06:59 06:59
Intake Total 2350 / 2350 2400 / 2400
Balance 2350 / 2350 2400 / 2400
Physical Exam
-
General: Well Developed and No Apparent Distress
HEENT: Normocephalic, Atraumatic and Moist Mucous Membranes
Respiratory: Clear to Auscultation
Cardiac: Regular Rhythm and S1/S2; Negative Murmur, Rub or Gallop
GI: Soft, Nontender, Nondistended and Normal Bowel Sounds; Negative Organomegaly
Rectal: Deferred by Provider
Musculoskeletal: No Clubbing, No Cyanosis and No Edema
Skin: Negative Rash
Neuro: Nonfocal/Grossly Intact and Other (Lethargic)
[2023-09-01] MEDS: LIPITOR PO (17:50)
[2023-09-01] MEDS: ZYPREXA PO (20:39)
[2023-09-02] MEDS: D5/0.45%NSS with KCL 20 MEQ 1000 IV ×2 (00:01→12:07)
[2023-09-02] MEDS: LOPRESSOR 5 MG IV ×5 (00:01→17:29)
[2023-09-02 03:10] VITALS: BP 139/97
[2023-09-02 06:00] VITALS: BMI 19.3
[2023-09-02] MEDS: DESENEX/MITRAZOL/ZEASORB 1 APPLIC TOPICAL ×2 (06:11→17:29)
[2023-09-02 08:00] VITALS: BP 142/94
[2023-09-02 09:09] LABS: % Basophils 0.8 % (0-2); % Immature Granulocytes 1.5 % (0-0.5); % Lymphocytes 2.1 % (20.5-51.1); % Monocytes 3.6 % (1.7-9.3); Absolute Basophils 0.1 10^3/uL (0-0.2); Absolute Immature Granulocytes 0.2 10^3/uL (0-0.05); Absolute Lymphocytes 0.3 10^3/uL (1.2-3.4); Absolute Monocytes 0.4 10^3/uL (0.1-0.6); Absolute Neutrophils 11.3 10^3/uL (1.4-6.5); Hematocrit 28.5 % (39.0-52.0); Hemoglobin 9.8 g/dL (13.0-18.0); Mean Corp Hgb Conc. 34.4 g/dL (33.0-37.0); Mean Corpuscular Hgb 31.5 pg (27.0-31.0); Mean Corpuscular Volume 91.6 fL (80.0-94.0); Nucleated Red Blood Cells % 0 % (-); Red Blood Cell Count 3.11 10^6/uL (4.70-6.10); Red Cell Dist. Width 15.8 % (11.5-14.5); White Blood Cell Count 12.3 10^3/uL (4.8-10.8)
[2023-09-02] MEDS: NSS (PRESERVATIVE FREE) 8 ML IV ×2 (09:27→21:31)
[2023-09-02] MEDS: HEPARIN 5000 UNITS SC (09:28)
[2023-09-02] MEDS: PEPCID 20 MG IV (09:28)
[2023-09-02] MEDS: TYLENOL/FEVERALL 325 MG RECTAL (09:29)
[2023-09-02 09:47] LABS: Blood Urea Nitrogen 33 mg/dl (9-20); Calcium 7.8 mg/dl (8.4-10.2); Carbon Dioxide 16 mmol/L (22-30); Chloride 122 mmol/L (98-107); Estimated Creatinine Clearance 33 ml/min; Glucose 114 mg/dl (70-99); Potassium 3.3 mmol/L (3.5-5.1); Sodium 144 mmol/L (135-145); eGFR 39.75
[2023-09-02 10:36] LABS: Mean Platelet Volume 13.4 fL (7.4-10.4); Platelet Count 50 10^3/uL (130-400)
[2023-09-02 12:10] VITALS: BP 135/88
--- NOTE | 2023-09-02 14:40 | CM ---
Addendum entered by Gloria Turcios 09/02/23 16:59:
Comfort Care initiated.
Original Note:
Spoke with patients daughter in hallway outside patients room.
She is agreeable to hospice services and chose Hospice.
TT to nurse Liaison.
Referral placed.
Plan: Hospice services.
--- NOTE | 2023-09-02 15:12 | HOSPNOTE ---
Spoke with daughter and she is in agreement to comfort measures. The patient is restrained and requires IV medications to control agitation. Spoke with attending and in agreement with plan. Will continue to follow.
[2023-09-02 15:25] VITALS: BP 152/102
[2023-09-02] MEDS: LIPITOR PO (17:23)
[2023-09-02 17:45] VITALS: BP 111/73
--- NOTE | 2023-09-02 17:46 | W.PN.HOSP.TC ---
Today's Communication/Plan
-
Comfort care
Assessment / Plan
Assessment / Plan
Impression:
Altered mental status secondary to delirium tremens
Falls at home
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
Severe alcohol use disorder repeat
Alcoholic hepatitis
Lactic acidosis
Hyponatremia
Hypokalemia
Conditions prior to admission:
Essential hypertension
Chronic iron deficiency anemia
Anxiety/depression.
Plan:
Persistent encephalopathy, 1 patient remains lethargic with periods of severe agitation requiring sedatives and restraints.
With meals, oral intake remains IV fluid dependent
Intermittent fever with significant aspiration risk while NPO given poor secretion clearance
Multiple comorbidities as described above.
Patient with underlying advanced dementia and failure to thrive
Ongoing goals of care discussion with plan to transition to comfort care including liberalization of diet/comfort feeding if possible, continue comfort care medications including IV morphine for respiratory distress, IV lorazepam for agitation.
Titrate dosage and regimen for comfort
Anticipated Discharge: 24 - 48 hours
Subjective/Interval History
-
Date of Service: September 02, 2023
Objective Data
-
Labs:
Laboratory Results
09/02/23
08:51
WBC 12.3 H
Hgb 9.8 L
Hct 28.5 L
Plt Count 50 L D
Sodium 144
Potassium 3.3 L
Chloride 122 H
Carbon Dioxide 16 L
BUN 33 H
Creatinine 1.8 H
Glucose 114 H
Calcium 7.8 L
Vital Signs:
Vital Signs
Temp Pulse Resp BP Pulse Ox
98.1 F 103 16 152/102 97
09/02/23 15:25 09/02/23 15:25 09/02/23 15:25 09/02/23 15:25 09/02/23 15:25
I&O
09/01/23 09/02/23 09/03/23
06:59 06:59 06:59
Intake Total 2400 / 2400 2300 / 2300
Balance 2400 / 2400 2300 / 2300
[2023-09-02] MEDS: ZYPREXA PO (21:40)
[2023-09-02] MEDS: MORPHINE SULFATE 2 MG IV (21:42)
[2023-09-02] MEDS: ATIVAN 1 MG PO (21:42)
[2023-09-02 23:10] VITALS: BP 104/48
[2023-09-03] MEDS: DESENEX/MITRAZOL/ZEASORB 1 APPLIC TOPICAL ×2 (05:23→17:32)
[2023-09-03 06:00] VITALS: BMI 18.7
[2023-09-03] MEDS: NSS (PRESERVATIVE FREE) IV ×2 (06:49→19:48)
[2023-09-03 07:00] VITALS: BP 134/94
--- NOTE | 2023-09-03 14:28 | W.PN.HOSP.TC ---
Today's Communication/Plan
-
Continue comfort care
Assessment / Plan
Assessment / Plan
Impression:
Altered mental status secondary to delirium tremens
Falls at home
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
Severe alcohol use disorder repeat
Alcoholic hepatitis
Lactic acidosis
Hyponatremia
Hypokalemia
Conditions prior to admission:
Essential hypertension
Chronic iron deficiency anemia
Anxiety/depression.
Plan:
Persistent encephalopathy, 1 patient remains lethargic with periods of severe agitation requiring sedatives and restraints.
With meals, oral intake remains IV fluid dependent
Intermittent fever with significant aspiration risk while NPO given poor secretion clearance
Multiple comorbidities as described above.
Patient with underlying advanced dementia and failure to thrive
Dose of care has been addressed as patient unavailable clinical course, transition to comfort care including liberalization of diet/comfort feeding if possible, continue comfort care medications including IV morphine for respiratory distress, IV
lorazepam for agitation. Titrate dosage and regimen for comfort
Anticipated Discharge: 24 - 48 hours
Subjective/Interval History
-
Date of Service: September 03, 2023
Objective Data
-
Vital Signs:
Vital Signs
Temp Pulse Resp BP Pulse Ox
99.0 F 111 20 134/94 95
09/03/23 07:00 09/03/23 07:00 09/03/23 07:00 09/03/23 07:00 09/03/23 07:00
I&O
09/02/23 09/03/23 09/04/23
06:59 06:59 06:59
Intake Total 2300 / 2300 1200 / 1200
Balance 2300 / 2300 1200 / 1200
Physical Exam
-
General: Well Developed and No Apparent Distress
HEENT: Normocephalic, Atraumatic and Moist Mucous Membranes
Respiratory: Clear to Auscultation
Cardiac: Regular Rhythm and S1/S2; Negative Murmur, Rub or Gallop
GI: Soft, Nontender, Nondistended and Normal Bowel Sounds; Negative Organomegaly
Rectal: Deferred by Provider
Musculoskeletal: No Clubbing, No Cyanosis and No Edema
Skin: Negative Rash
Neuro: Other (Lethargic, noncommunicative)
[2023-09-03] MEDS: ZYPREXA PO (21:18)
[2023-09-03 23:10] VITALS: BP 144/90
[2023-09-04] MEDS: DESENEX/MITRAZOL/ZEASORB 1 APPLIC TOPICAL ×2 (05:13→16:38)
[2023-09-04 08:00] VITALS: BP 140/80
[2023-09-04] MEDS: NSS (PRESERVATIVE FREE) IV ×2 (10:56→19:49)
[2023-09-04] MEDS: MORPHINE SULFATE 2 MG IV (10:57)
[2023-09-04] MEDS: ATIVAN 1 MG IV ×2 (12:44→16:37)
[2023-09-04] MEDS: NSS (PRESERVATIVE FREE) 0.5 ML IV ×2 (12:45→16:38)
--- NOTE | 2023-09-04 13:30 | PTCARENOTE ---
12:30 Noted pt restless, pt turning self in bed. Morphine 2 mg IV given at 11am for restlessness with no relief. Notified Dr. Haywood, pt unable to tolerate po (weak swallow). Ativan 1 mg IV ordered, given with relief, continue comfort care.
--- NOTE | 2023-09-04 14:43 | W.PN.HOSP.TC ---
Today's Communication/Plan
-
comfort care
Assessment / Plan
Assessment / Plan
Impression:
Altered mental status secondary to delirium tremens
Falls at home
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
Severe alcohol use disorder repeat
Alcoholic hepatitis
Lactic acidosis
Hyponatremia
Hypokalemia
Conditions prior to admission:
Essential hypertension
Chronic iron deficiency anemia
Anxiety/depression.
Plan:
Persistent encephalopathy, 1 patient remains lethargic with periods of severe agitation requiring sedatives and restraints.
With meals, oral intake remains IV fluid dependent
Intermittent fever with significant aspiration risk while NPO given poor secretion clearance
Multiple comorbidities as described above.
Patient with underlying advanced dementia and failure to thrive
Dose of care has been addressed as patient unavailable clinical course, transition to comfort care including liberalization of diet/comfort feeding if possible, continue comfort care medications including IV morphine for respiratory distress, IV
lorazepam for agitation. Titrate dosage and regimen for comfort
update 09/03 - switch po ativan to IV; cont comfort measures
Anticipated Discharge: 24 - 48 hours
Subjective/Interval History
-
Date of Service: September 04, 2023
No acute changes
Objective Data
-
Vital Signs:
Vital Signs
Temp Pulse Resp BP Pulse Ox
98.3 F 121 18 144/90 95
09/03/23 23:10 09/03/23 23:10 09/03/23 23:10 09/03/23 23:10 09/03/23 23:10
I&O
09/03/23 09/04/23 09/05/23
06:59 06:59 06:59
Intake Total 1200 / 1200
Balance 1200 / 1200
Review of Systems
-
History Source: Patient
All other systems: Not reviewed unless documented
Data Reviewed
-
Total Time Spent with Patient (in minutes): 45
Diagnostic Radiology: Image personally visualized and interpreted and Report Reviewed by me
Labs: Labs Reviewed by me
[2023-09-04 19:10] VITALS: BP 103/85
[2023-09-04] MEDS: ZYPREXA PO (21:36)
[2023-09-05] MEDS: NSS (PRESERVATIVE FREE) 0.5 ML IV ×2 (02:14→06:31)
[2023-09-05] MEDS: ATIVAN 1 MG IV ×3 (02:14→07:49)
[2023-09-05] MEDS: DESENEX/MITRAZOL/ZEASORB 1 APPLIC TOPICAL (05:02)
[2023-09-05 07:15] VITALS: BP 135/84
--- NOTE | 2023-09-05 08:10 | PTCARENOTE ---
0800 Noted pt restless in bed, turning self. Respirations 32 (pulse ox 96% room air), hand tremors. Emotional support given. Ativan 1 mg IV given as ordered with relief. Pt resting, calmer,continue to monitor pt.
--- NOTE | 2023-09-05 12:57 | W.PN.DEATH ---
Pronouncement of
-
Called to see patient to pronounce.
No spontaneous heart tones or respirations noted.
Patient not responsive to verbal stimuli.
Patient is pronounced .
Time of : 12:40
Date of : 09/05/23
Cause of : cardiac arrest
Family Notified: Yes
--- NOTE | 2023-09-05 12:58 | W.PN.HOSP.TC ---
Today's Communication/Plan
-
comfort care - today 12:40 PM
Assessment / Plan
Assessment / Plan
Impression:
Altered mental status secondary to delirium tremens
Falls at home
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
Severe alcohol use disorder repeat
Alcoholic hepatitis
Lactic acidosis
Hyponatremia
Hypokalemia
Conditions prior to admission:
Essential hypertension
Chronic iron deficiency anemia
Anxiety/depression.
Plan:
Persistent encephalopathy, 1 patient remains lethargic with periods of severe agitation requiring sedatives and restraints.
With meals, oral intake remains IV fluid dependent
Intermittent fever with significant aspiration risk while NPO given poor secretion clearance
Multiple comorbidities as described above.
Patient with underlying advanced dementia and failure to thrive
Dose of care has been addressed as patient unavailable clinical course, transition to comfort care including liberalization of diet/comfort feeding if possible, continue comfort care medications including IV morphine for respiratory distress, IV
lorazepam for agitation. Titrate dosage and regimen for comfort
update 09/03 - switch po ativan to IV; cont comfort measures
update 09/04 - 09/04 at 12:40 PM. pupils non reactive to light, no heart beat. no active respiratory breathing pattern. condolences were given.
Anticipated Discharge: Today
Subjective/Interval History
-
Date of Service: September 05, 2023
patient was about to be transitioned to morphine ggt, prior to.
Objective Data
-
Vital Signs:
Vital Signs
Temp Pulse Resp BP Pulse Ox
98.0 F 128 32 135/84 96
09/05/23 07:15 09/05/23 07:15 09/05/23 07:15 09/05/23 07:15 09/05/23 09:00
Review of Systems
-
Unable to obtain full review of systems at this time due to: Acuity
Physical Exam
-
General: Well Developed and No Apparent Distress
HEENT: Normocephalic, Atraumatic and Moist Mucous Membranes
Respiratory: Clear to Auscultation and Accessory Resp Muscle Use
Cardiac: Regular Rhythm and S1/S2; Negative Murmur, Rub or Gallop
GI: Soft, Nontender, Nondistended and Normal Bowel Sounds; Negative Organomegaly
Rectal: Deferred by Provider
Musculoskeletal: No Clubbing, No Cyanosis and No Edema
Skin: Negative Rash
Neuro: Other (Lethargic, noncommunicative)
Data Reviewed
-
Total Time Spent with Patient (in minutes): 45
Diagnostic Radiology: Image personally visualized and interpreted and Report Reviewed by me
Labs: Labs Reviewed by me
--- NOTE | 2023-09-05 13:01 | W.DS.TRANS ---
DC Summary - Legal Manager
-
Discharge Instructions:
Instructions:
Stand-Alone Forms:
Changes to Home Medications: No
Discharge Medications:
DC Medications w/original date entered in [employer]
simvastatin 20 mg tablet 20 mg PO QPM High cholesterol 02/08/21
ferrous sulfate 325 mg (65 mg iron) tablet (FeroSul) 325 mg PO DAILY Supplement 06/03/22
folic acid 400 mcg tablet 0.4 mg PO DAILY #30 tabs 12/01/22
metoprolol succinate 25 mg tablet,extended release 24 hr 12.5 mg PO DAILY #30 tabs 12/01/22
olanzapine 2.5 mg tablet 2.5 mg PO HS #30 tabs 12/01/22
thiamine HCl (vitamin B1) 100 mg tablet 100 mg PO DAILY #30 tabs 12/01/22
docusate sodium 100 mg capsule (Colace) 200 mg PO QPM Constipation 08/16/23
famotidine 40 mg tablet (Pepcid) 40 mg PO HS Gastrointestinal Issue 08/16/23
hydrochlorothiazide 12.5 mg tablet 12.5 mg PO QPM Blood Pressure 08/16/23
pantoprazole 40 mg tablet,delayed release (Protonix) 40 mg PO DAILY Gastrointestinal Issue 08/16/23
sertraline 100 mg tablet 100 mg PO DAILY Mental Health/Anxiety 08/16/23
Home Medication Changes
NA
Pending Results: No
--- NOTE | 2023-09-05 14:30 | PTCARENOTE ---
12:40 Pt found with no BP, no pulse, no respirations. Dr. Haywood notified, here at bedside and aware. Pt's two daughters aware, arrived at bedside.
1430 Pt transferred to [facility] via stretcher, clothing sent with family.
== END 2023-09-05 15:09 | disposition expired | DRG 896 ==
LOC: 4 WEST ACU 23:52
PROVIDERS: Hospitalist; Internal Medicine; Nurse Practitioner Family; ADMITTING PHYSICIAN Hospitalist; ATTENDING PHYSICIAN Internal Medicine; CONSULT PHYSICIAN Internal Medicine Critical Care Medicine; EMERGENCY PHYSICIAN Emergency Medicine; FAMILY PHYSICIAN Family Medicine; OTHER PHYSICIAN Neurological Surgery
DX: F10.231 Alcohol dependence with withdrawal delirium (principal); G92.8 Other toxic encephalopathy; S06.5XAA Traumatic subdural hemorrhage with loss of consciousness status unknown, initial encounter; U07.1 COVID-19; E87.4 Mixed disorder of acid-base balance; F03.94 Unspecified dementia, unspecified severity, with anxiety; F03.93 Unspecified dementia, unspecified severity, with mood disturbance; E87.1 Hypo-osmolality and hyponatremia; D61.818 Other pancytopenia; E44.0 Moderate protein-calorie malnutrition; Z68.1 Body mass index [BMI] 19.9 or less, adult; Z87.891 Personal history of nicotine dependence; E86.0 Dehydration; K70.10 Alcoholic hepatitis without ascites; I10 Essential (primary) hypertension; D50.9 Iron deficiency anemia, unspecified; F32.A Depression, unspecified; D69.59 Other secondary thrombocytopenia; K21.9 Gastro-esophageal reflux disease without esophagitis; I46.9 Cardiac arrest, cause unspecified; E87.6 Hypokalemia; Z66 Do not resuscitate; Z51.5 Encounter for palliative care; R62.7 Adult failure to thrive
CPT/HCPCS: 70450; 71045; 71046; 76700; 80048; 80053; 80306; 80307; 81003; 82077; 82140; 82248; 82805; 82962; 82977; 83605; 83615; 83735; 84100; 84443; 85025; 85027; 85610; 85730; 86704; 86705; 86706; 86709; 86803; 87040; 87340; 87502; 87811; 92526; 92610; 93005; 93975; 94640; 96360; 97163; 97167; 97530; 97535; 99285; J2358